=== PATIENT | female | born 1990 | race Caucasian/White ===

== ENCOUNTER 2020-07-22 20:35 | Emergency (ER) | payer SELFPAY ==
[2020-07-22 20:46] VITALS: BP 131/80; PULSE 91; RESP 16; TEMP 36.8; O2SAT 99; BMI 20.7
--- NOTE | 2020-07-22 21:37 | XR_ITS ---
WS: [id number] Portable AP upright chest, 07/22/2020 Clinical Data: Dyspnea/chest pain Comparison: PA and lateral chest, 05/27/2014. Findings: No nodules, masses or effusions are seen. The heart is normal. The pulmonary vascularity is not increased. No pneumonia or pneumothorax is seen. XR/XR chest 1V portable [id number] Impression: Negative chest.
--- NOTE | 2020-07-22 21:37 | ECG_ITS ---
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 Measurements Intervals [place] Rate: 91 P: 54 NE: 104 QRS: 70 QRSD: 88 T: -5 QT: 346 QTc: 426 Interpretive Statements SINUS RHYTHM WITH SHORT NE INTERVAL NONSPECIFIC T-WAVE ABNORMALITY No previous ECG available for comparison Electronically Signed On 07-23-2020 10:15:23 PASTING MACHINE OPERATOR by Jv Oliveros M.D. [id number]
--- NOTE | 2020-07-22 22:32 | W.ED.GENADLT ---
HPI - General Adult General: Chief complaint: General Medical Stated complaint: SOB/chest pain Time Seen by Provider: 07/22/20 22:20 History of Present Illness: HPI narrative: Patient is a 30-year-old female comes to the ED with chest pain. Patient says that it started approximately 2 days ago and started when she was sleeping.. She describes it as a sharp pain in the middle of her chest that also feels like some things stuck letter. She says that symptoms are worse when she is eating or when she lays down. She says that she currently has been drinking about 4 energy drinks a day for the past few months. Denies any previous cardiac history. Patient says she did have a fever earlier today and took some Tylenol. She has not noticed any fever since earlier today. Patient says she is taken Tums and has not gotten any relief. Denies abdominal pain, nausea/vomiting, bladder or bowel symptoms. Patient also states she is a tobacco smoker. Associated symptoms: Reports chest pain; Deny dyspnea, headache(s), nausea, rash, palpitations or vomiting Review of Systems Const: Denies: fever(s), chills or fatigue Eyes: Denies: change in vision or eye discomfort ENMT: Denies: throat pain, odynophagia, nasal discharge or nasal congestion Card: Reports: chest pain; Denies: palpitations, edema, swelling of feet/ankles, dyspnea on exertion or orthopnea Resp: Denies: dyspnea, productive cough or non-productive cough GI: Denies: abdominal pain, nausea, vomiting, diarrhea, constipation or hematochezia : Denies: flank pain, dysuria or hematuria Musc: Denies: neck pain, back pain or extremity swelling Skin/Breast: Denies: rash or new lesions Neuro: Denies: headache(s), numbness in extremities or weakness in extremities Physical Exam Const: COMMON NORMALS: no acute distress, patient oriented x3 and alert GENERAL APPEARANCE: cooperative and comfortable HENMT: COMMON NORMALS: normocephalic HEAD & SCALP: normocephalic MOUTH: Normal oral and palatal mucosa present THROAT: posterior oropharynx normal and uvula midline Eye: COMMON NORMALS: Equal, round and reactive pupils present PUPIL: Yes Equal, round and reactive pupils present Neck/C-Spine: COMMON NORMALS: supple GENERAL: Yes normal visual inspection Resp: COMMON NORMALS: normal respiratory effort, No retractions, No use of accessory muscles and clear to auscultation bilaterally EFFORT & INSPECTION: Yes able to speak in complete sentences, No tachypneic, No respiratory distress and No labored AUSCULTATION: clear to auscultation bilaterally Cardio: COMMON NORMALS: regular rate, regular rhythm, S1 normal heart sound present, S2 normal heart sound present, No gallops present (Cardio), No clicks present (Cardio), No murmurs present (Cardio) and Peripheral pulses 2+ throughout RATE: regular rate RHYTHM: regular rhythm HEART SOUNDS: S1 normal heart sound present and S2 normal heart sound present PERIPHERAL PULSES: Peripheral pulses 2+ throughout GI: COMMON NORMALS: Normal to inspection, nondistended, normoactive bowel sounds present, Soft to palpation and no masses PALPATION: Yes Soft to palpation and Yes Tenderness to palpation present (GI) Details: other (Very mild tenderness to the epigastric region. No other abdominal tenderness present.) : COMMON NORMALS: Yes no CVA tenderness BLADDER/KIDNEY EXAM: Yes no CVA tenderness Back/Pelvis: COMMON NORMALS: no CVA tenderness Extremity: COMMON NORMALS: normal to inspection and no pedal edema Neuro: COMMON NORMALS: patient oriented x3 and moves all extremities SENSORIUM/ORIENTATION: Yes alert Skin: GENERAL SKIN EXAM: dry skin Course Reevaluation(s): Reevaluation #1: GI cocktail provided minimal relief. Vital Signs: Vital signs: Vital Signs Temperature 98.2 F 07/22/20 20:46 Pulse Rate 67 07/23/20 00:41 Respiratory Rate 16 07/23/20 00:41 Blood Pressure 132/78 07/23/20 00:41 Pulse Oximetry 99 07/23/20 00:41 MDM - General Adult MDM Narrative: Medical decision making narrative: Patient is a 30-year-old female comes to the ED with chest pain. Chest pain sharp lower part of the chest and she says it gets worse. Patient says that she has been he drinks a day for the past few months. Denies any fever, vomiting, diarrhea, constipation, blood in stool, dysuria or hematuria. Chest x-ray showed no acute findings. EKG showed normal sinus rhythm with no ST segment elevation or depression seen. Troponin negative. White blood cells 12, hemoglobin 10.4 and rest of labs were unremarkable. Patient given GI cocktail and provided minimal relief. Patient was diagnosed with acid reflux and told pt to decreased intake of caffeine and tobacco smoke to help with symptoms. She was discharged with a prescription for Zofran and pantoprazole. Follow-up with PCP in 5 to 7 days for reevaluation. Return to ED precautions given. Patient understood and agree with plan. Lab Data: Attestation: I reviewed the patient's lab results. Labs: Lab Results 07/22/20 07/22/20 07/22/20 Range/Units 23:04 23:04 23:04 WBC 12.0 H (4.0-10.0) 10^3/ uL RBC 4.95 (4.1-5.3) 10^6/u L Hgb 10.4 L (11.5-15.3) g/dL Hct 34.4 L (37.0-47.0) % MCV 69.5 L (81-99) fL MCH 21.0 L (28.0-34.0) pg MCHC 30.2 (30.0-36.0) g/dL RDW 17.3 H (12.1-15.1) % Plt Count 397 (130-400) 10^3/c mm MPV 11.0 H (7.4-10.4) fL Neut % (Auto) 70.0 % Lymph % (Auto) 17.5 % [place] % (Auto) 8.8 % Eos % (Auto) 2.5 % Baso % (Auto) 0.9 % Neut # (Auto) 8.39 H (1.8-7.7) 10^3/u L Lymph # (Auto) 2.1 (0.8-4.8) 10^3/u L [place] # (Auto) 1.1 H (0.2-0.9) 10^3/u L Eos # (Auto) 0.3 (0.0-0.8) 10^3/u L Baso # (Auto) 0.1 (0.0-0.1) 10^3/u L Nucleated RBC % (a uto) 0 % Nucleated RBCs # 0.0 /100WBC PT 13.20 (12.1-14.9) SECO NDS INR 0.97 (0.8-1.2) Sodium 140 (136-145) mmol/L Potassium 3.9 (3.5-5.1) mmol/L Chloride 104 (98-107) mmol/L Carbon Dioxide 24 (22-29) mmol/L Anion Gap 15.9 (5-19) BUN 12 (6-20) mg/dL Creatinine 0.7 (0.5-0.9) mg/dL GFR Calculation 98.9 (90-130) mL/min Glucose 79 (65-115) mg/dL Calculated Osmolal ity 289 (285-295) mOsm/k g Calcium 9.3 (8.5-10.5) mg/dL Magnesium 2.3 (1.7-2.3) mg/dL Total Bilirubin 0.2 (0.15-1.2) mg/dL AST 13 (0-32) U/L ALT 11 (0-33) U/L Alkaline Phosphata se 64 (35-105) IU/L Troponin T Baselin e (0-10) ng/L Total Protein 6.7 (6.6-8.7) g/dL Albumin 4.6 (3.5-5.2) g/dL Globulin 2.1 (1.3-4.6) g/dL Lipase 23 (13-60) U/L HCG, Qual (Negative) Urine Color (Yellow) Urine Appearance (CLEAR) Urine pH (5-7) Ur Specific Gravit y (1.005-1.030) Urine Protein (Negative) Urine Glucose (UA) (Normal) Urine Ketones (Negative) Urine Blood (Negative) Urine Nitrate (Negative) Urine Bilirubin (Negative) Urine Urobilinogen (Negative) mg/dL Ur Leukocyte Fiona ase (Negative) Urine RBC (0-2) /hpf Urine WBC (0-5) /hpf Ur Squamous Epith Cells (0-5) /hpf Amorphous Sediment Urine Bacteria (NONE) /hpf Urine Mucus /hpf 07/22/20 07/22/20 07/22/20 Range/Units 23:04 23:04 23:43 WBC (4.0-10.0) 10^3/ uL RBC (4.1-5.3) 10^6/u L Hgb (11.5-15.3) g/dL Hct (37.0-47.0) % MCV (81-99) fL MCH (28.0-34.0) pg MCHC (30.0-36.0) g/dL RDW (12.1-15.1) % Plt Count (130-400) 10^3/c mm MPV (7.4-10.4) fL Neut % (Auto) % Lymph % (Auto) % [place] % (Auto) % Eos % (Auto) % Baso % (Auto) % Neut # (Auto) (1.8-7.7) 10^3/u L Lymph # (Auto) (0.8-4.8) 10^3/u L [place] # (Auto) (0.2-0.9) 10^3/u L Eos # (Auto) (0.0-0.8) 10^3/u L Baso # (Auto) (0.0-0.1) 10^3/u L Nucleated RBC % (a uto) % Nucleated RBCs # /100WBC PT (12.1-14.9) SECO NDS INR (0.8-1.2) Sodium (136-145) mmol/L Potassium (3.5-5.1) mmol/L Chloride (98-107) mmol/L Carbon Dioxide (22-29) mmol/L Anion Gap (5-19) BUN (6-20) mg/dL Creatinine (0.5-0.9) mg/dL GFR Calculation (90-130) mL/min Glucose (65-115) mg/dL Calculated Osmolal ity (285-295) mOsm/k g Calcium (8.5-10.5) mg/dL Magnesium (1.7-2.3) mg/dL Total Bilirubin (0.15-1.2) mg/dL AST (0-32) U/L ALT (0-33) U/L Alkaline Phosphata se (35-105) IU/L Troponin T Baselin e 6 (0-10) ng/L Total Protein (6.6-8.7) g/dL Albumin (3.5-5.2) g/dL Globulin (1.3-4.6) g/dL Lipase (13-60) U/L HCG, Qual Negative (Negative) Urine Color Yellow (Yellow) Urine Appearance Clear (CLEAR) Urine pH 5.0 (5-7) Ur Specific Gravit y 1.025 (1.005-1.030) Urine Protein Neg (Negative) Urine Glucose (UA) Norm (Normal) Urine Ketones 1+ H (Negative) Urine Blood Neg (Negative) Urine Nitrate Negative (Negative) Urine Bilirubin Neg (Negative) Urine Urobilinogen Norm (Negative) mg/dL Ur Leukocyte Fiona ase Negative (Negative) Urine RBC 0-4 H (0-2) /hpf Urine WBC 0-4 H (0-5) /hpf Ur Squamous Epith Cells Rare (0-5) /hpf Amorphous Sediment Not Reportable Urine Bacteria Trace (NONE) /hpf Urine Mucus Trace /hpf Imaging Data^: CXR: Attestation: I personally reviewed and interpreted this imaging study as follows: My impression: Chest x-ray showed no acute findings. EKG Data^: EKG 1: Attestation: I personally reviewed and interpreted this EKG as follows: EKG interpretation date: 07/22/20 Interpretation: Normal sinus rhythm, 67 bpm, no ST segment elevation or depression seen. Discharge Plan Discharge Patient Disposition: Home Clinical Impression: Acid reflux disease Qualifiers: Esophagitis presence: esophagitis presence not specified Qualified Code(s): K21.9 - Gastro-esophageal reflux disease without esophagitis Condition: Stable Prescriptions: New pantoprazole 40 mg tablet,delayed release (DR/EC) 40 mg PO DAILY 28 Days Qty: 30 RF: 0 Zofran 4 mg tablet 4 mg PO Q8H PRN (Reason: nausea and vomiting) Qty: 20 RF: 0 Discharge Orders: Discharge Order (Routine); Ordered 07/23/20 Ordered By: Benson Aranda Referrals: Perla Meade MD [Primary Care Provider] - Discharge Diet: Advance as tolerated Discharge Activity: Resume usual activity Patient Instructions: Gastroesophageal Reflux Disease (ED) Activity Restrictions/Additional Instructions: Follow-up with medical provider as directed in 5-7 days. Take medications as prescribed. Cut back on caffeine intake to help with acid reflux. Return to the ER or your medical provider if condition worsens. Please read and understand discharge instructions. If any questions, please ask. Coding Level of Care Code ED Dock Loader for Chg Fwd Exam Comprehensive
[2020-07-22 22:40] VITALS: BP 123/67; PULSE 72; RESP 15; O2SAT 100
[2020-07-22] MEDS: lidocaine 2% viscous 15 ML, aluminum-mag hydrox-simethicon 30 ML, sucralfate oral liq 1 GM PO (22:54)
[2020-07-22] MEDS: sodium chloride 0.9% 1,000 ML 999 ML IV (23:05)
[2020-07-22 23:06] VITALS: BP 114/64; PULSE 73; RESP 15; O2SAT 100
[2020-07-22 23:28] LABS: HCG, Serum Qual Negative (Negative)
[2020-07-22 23:30] LABS: Basophils # 0.1 10^3/uL (0.0-0.1); Basophils % 0.9 %; Eosinophils # 0.3 10^3/uL (0.0-0.8); Eosinophils % 2.5 %; Hematocrit 34.4 % (37.0-47.0); Hemoglobin 10.4 g/dL (11.5-15.3); Lymphocytes # 2.1 10^3/uL (0.8-4.8); Lymphocytes % 17.5 %; Mean Corpuscular HGB Conc 30.2 g/dL (30.0-36.0); Mean Corpuscular Volume 69.5 fL (81-99); Monocytes # 1.1 10^3/uL (0.2-0.9); Monocytes % 8.8 %; Neutrophils # 8.39 10^3/uL (1.8-7.7); Nucleated Red Blood Cells % 0 %; Platelet Count 397 10^3/cmm (130-400); Red Blood Count 4.95 10^6/uL (4.1-5.3); Red Cell Distribution Width 17.3 % (12.1-15.1)
[2020-07-22 23:32] LABS: INR 0.97 (0.8-1.2)
--- NOTE | 2020-07-22 23:37 | ECG_ITS ---
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 Measurements Intervals [place] Rate: 67 P: 40 DE: 125 QRS: 64 QRSD: 89 T: 36 QT: 374 QTc: 395 Interpretive Statements SINUS RHYTHM NON SPECIFIC T WAVE ABNORMALITY COMPARED TO PRIOR EKG FROM 07/22/2020, NO SIGNIFICANT CHANGES ARE NOTED Electronically Signed On 07-23-2020 10:20:[address] by Jv Oliveros M.D. [id number]
[2020-07-22 23:47] VITALS: BP 114/74; PULSE 81; RESP 15; O2SAT 100
[2020-07-23 00:08] LABS: Bilirubin Urine Neg (Negative); Blood Urine Neg (Negative); Glucose Urine UA Norm (Normal); Ketones Urine 1+ (Negative); Nitrate Urine Negative (Negative); Protein Urine Neg (Negative); Specific Gravity, Urine 1.025 (1.005-1.030); Urine Appearance Clear (CLEAR); Urine Color Yellow (Yellow); Urobilinogen Urine Norm (Negative)
[2020-07-23 00:09] LABS: Add Urine Culture? No; Bacteria Urine TRACE /hpf; Leukocyte Esterase Urine Negative (Negative); Mucus Urine TRACE /hpf; RBC Urine 0-4 /hpf (0-2); Squamous Epithelial Cell Urine RARE /hpf (0-5); WBC Urine 0-4 /hpf (0-5)
[2020-07-23 00:10] LABS: Troponin(5th) Baseline 6 ng/L (0-10)
[2020-07-23 00:11] LABS: Alanine Aminotransferase 11 U/L (0-33); Albumin Level 4.6 g/dL (3.5-5.2); Alkaline Phosphatase 64 IU/L (35-105); Anion Gap 15.9 (5-19); Aspartate Amino Transferase 13 U/L (0-32); Blood Urea Nitrogen 12 mg/dL (6-20); Calcium 9.3 mg/dL (8.5-10.5); Carbon Dioxide 24 mmol/L (22-29); Chloride 104 mmol/L (98-107); Globulin 2.1 g/dL (1.3-4.6); Glomerular Filtration Rate 98.9 mL/min (90-130); Glucose 79 mg/dL (65-115); Lipase 23 U/L (13-60); Magnesium 2.3 mg/dL (1.7-2.3); Osmolality Calculated 289 mOsm/kg (285-295); Potassium 3.9 mmol/L (3.5-5.1); Sodium 140 mmol/L (136-145); Total Bilirubin 0.2 mg/dL (0.15-1.2); Total Protein 6.7 g/dL (6.6-8.7)
[2020-07-23 00:41] VITALS: BP 132/78; PULSE 67; RESP 16; O2SAT 99
== END 2020-07-23 00:43 | disposition home or self-care (01) ==
PROVIDERS: Emergency Medicine; Emergency Provider Physician Assistant; PCP Family Medicine
DX: K21.9 Gastro-esophageal reflux disease without esophagitis (principal); F17.200 Nicotine dependence, unspecified, uncomplicated
CPT/HCPCS: 12345; 71045; 80053; 81001; 83690; 83735; 84484; 84703; 85025; 85610; 93005; 96360; 99283; J7030

== ENCOUNTER → 2023-05-12 13:30 | Outpatient (BNVA) | payer OTHER, SELFPAY | PROVIDERS: PCP Family Medicine; Visit Provider Nurse Practitioner Women's Health | DX: Z12.4 Encounter for screening for malignant neoplasm of cervix (principal) | CPT/HCPCS: 87624 ==

== ENCOUNTER → 2023-05-25 15:20 | Outpatient (BNVA) | payer OTHER, SELFPAY | PROVIDERS: PCP Family Medicine; Visit Provider Nurse Practitioner Women's Health | DX: N94.6 Dysmenorrhea, unspecified (principal); N83.01 Follicular cyst of right ovary | CPT/HCPCS: 76830 ==

== ENCOUNTER → 2023-06-27 13:31 | Outpatient (BNVA) | payer OTHER, SELFPAY | PROVIDERS: PCP Family Medicine; Visit Provider Nurse Practitioner Women's Health | DX: N83.01 Follicular cyst of right ovary (principal); N83.02 Follicular cyst of left ovary | CPT/HCPCS: 76830 ==

== ENCOUNTER → 2023-06-30 | Outpatient (BNVA) | payer OTHER, SELFPAY | PROVIDERS: PCP Family Medicine; Visit Provider Nurse Practitioner Women's Health | DX: Z12.4 Encounter for screening for malignant neoplasm of cervix (principal); N83.8 Other noninflammatory disorders of ovary, fallopian tube and broad ligament; N92.6 Irregular menstruation, unspecified; R10.2 Pelvic and perineal pain | CPT/HCPCS: 83001; 84146; 84443; 84702; 85025 ==

== ENCOUNTER → 2023-08-09 10:18 | Outpatient (BNVA) | payer OTHER, SELFPAY | PROVIDERS: PCP Family Medicine; Visit Provider Registered Nurse Neonatal Intensive Care | DX: J02.9 Acute pharyngitis, unspecified (principal) | CPT/HCPCS: 87880 ==

== ENCOUNTER 2023-09-27 10:15 | Inpatient (IN) | payer OTHER, SELFPAY ==
[2023-09-23 10:43] LABS: Basophils # 0.1 10^3/uL (0.0-0.1); Basophils % 1.8 %; Eosinophils # 0.3 10^3/uL (0.0-0.8); Eosinophils % 4.2 %; Hematocrit 32.6 % (36-47); Lymphocytes # 1.6 10^3/uL (0.8-4.8); Lymphocytes % 25.9 %; Mean Corpuscular Hemoglobin 22.4 pg (27-33); Mean Corpuscular Volume 72.4 fl (85-98); Mean Platelet Volume 10.3 fL (7.4-10.4); Monocytes # 0.6 10^3/uL (0.2-0.9); Neutrophils # 3.61 10^3/uL (1.8-7.7); Neutrophils % 58.9 %; Nucleated Red Blood Cells % 0 %; Platelet Count 445 10^3/cmm (157-399); Red Cell Distribution Width 16.7 % (12.1-15.1); White Blood Count 6.13 10^3/uL (3.29-11.43)
[2023-09-23 11:05] LABS: Anion Gap 14.8 (5-19); Blood Urea Nitrogen 15 mg/dL (6-20); Calcium 9.5 mg/dL (8.5-10.5); Carbon Dioxide 24 mmol/L (22-29); Chloride 104 mmol/L (98-107); Glucose 92 mg/dL (65-115); Osmolality Calculated 286 mOsm/kg (285-295); Potassium 4.8 mmol/L (3.5-5.1); Sodium 138 mmol/L (136-145)
--- NOTE | 2023-09-23 13:55 | P.ANESASSM_ITS ---
Pre-Anesthetic Assessment Height/Weight: Height 1.55 m Operation Date: 09/27/23 11:15 Proposed Procedures p Total abdominal hysterectomy, left salpingo-oophorectomy 74611, N92.6,R10.2(Not Applicable) - Reji Singh MD s Salpingo Oophorectomy (Open)(Not Applicable) - Reji Singh MD Social No alcohol and No tobacco Airway Submandibular: within normal limits Cervical ROM: within normal limits Mallampati: Class I History/ROS No significant history except as noted Anesthetic Plan ASA status: 1 Anesthesia: General Medications/Allergies Home Medications Medication Instructions Recorded Confirmed Last Taken Type methylphenidate HCl 18 mg 18 mg PO DAILY 05/12/23 09/23/23 09/23/23 History tablet,extended release 24 hr (Concerta) Allergies Allergy/AdvReac Type Severity Reaction Status Date / Time cefaclor [From Ceclor] Allergy ALGY-Rash Verified 09/23/23 10:03 [facility] Anesthesia Family History Mother Ovarian cancer Family/Other Breast cancer Paternal aunt Father Diabetes Denies family history of Cervical cancer Colon cancer Hypertension Uterine cancer Thyroid disease Stroke Data Anesthesia 09/23/23 10:20 09/23/23 10:20 Short CBC 09/23/23 Range/Units 10:20 WBC 6.13 (3.29-11.43) 10^3/uL Hgb 10.10 L (11.27-16.99) g/dL Hct 32.6 L (36-47) % MCV 72.4 L (85-98) fl Plt Count 445 H (157-399) 10^3/cmm Neut % (Auto) 58.9 % Neut # (Auto) 3.61 (1.8-7.7) 10^3/uL BMP 09/23/23 10:20 Sodium 138 Potassium 4.8 Chloride 104 Carbon Dioxide 24 BUN 15 Creatinine 0.7 Glucose 92 Calcium 9.5 Cardiac Studies: 2 No Data to Display
[2023-09-27] VITALS (22 sets, daily range): BP systolic 104–145; BP diastolic 56–82; PULSE 63–109; RESP 14–18; TEMP 36.2–37.1; O2SAT 94–100; BMI 21.7
[2023-09-27] MEDS: scopolamine 1.5 Patch 1 PATCH TRANSDERMA (06:32)
[2023-09-27] MEDS: sodium chloride 0.9% 1,000 ML 30 ML IV (06:33)
[2023-09-27] MEDS: sodium chloride 0.9% 500 ML IV (06:43)
[2023-09-27] MEDS: vancomycin 1,000 MG in sodium chloride 0.9% 250 ML 250 MG IV (06:43)
[2023-09-27 06:46] LABS: Glucose Urine UA Norm (Normal); Protein Urine Neg (Negative); Urine Appearance SL Hazy (CLEAR); Urine Color Yellow (Yellow); pH Urine 5 (5-7)
[2023-09-27 06:47] LABS: Add Urine Culture? No; Add Urine Microscopic? YES; Bacteria Urine 2+ /hpf; Bilirubin Urine Neg (Negative); Blood Urine 2+ (Negative); Ketones Urine 1+ (Negative); Leukocyte Esterase Urine Negative (Negative); Mucus Urine 2+ /hpf; Nitrate Urine Negative (Negative); RBC Urine 0-4 /hpf (0-2); Squamous Epithelial Cell Urine 25-40 /hpf (0-5); Urobilinogen Urine Norm (Negative); WBC Urine 15-25 /hpf (0-5)
[2023-09-27 06:50] LABS: Basophils # 0.2 10^3/uL (0.0-0.1); Eosinophils # 0.3 10^3/uL (0.0-0.8); Eosinophils % 3.6 %; Hematocrit 32.7 % (36-47); Lymphocytes # 2.6 10^3/uL (0.8-4.8); Lymphocytes % 33.7 %; Mean Corpuscular HGB Conc 31.8 g/dL (30-55); Mean Corpuscular Hemoglobin 22.8 pg (27-33); Mean Corpuscular Volume 71.6 fl (85-98); Mean Platelet Volume 10.1 fL (7.4-10.4); Monocytes # 0.6 10^3/uL (0.2-0.9); Monocytes % 8.1 %; Neutrophils # 3.97 10^3/uL (1.8-7.7); Neutrophils % 52.5 %; Nucleated Red Blood Cells % 0 %; Platelet Count 498 10^3/cmm (157-399); Red Blood Count 4.57 10^6/uL (3.85-5.65); Red Cell Distribution Width 16.4 % (12.1-15.1); White Blood Count 7.56 10^3/uL (3.29-11.43)
[2023-09-27 06:53] LABS: OR HCG Qualitative Urine Negative (Negative)
--- NOTE | 2023-09-27 06:57 | P.ANESUD_ITS ---
Pre-Anesthetic Update Pre-Anesthetic Assessment: Date of Surgery/Procedure: 09/27/23 Preop Marlys gnosis: Abnormal uterine bleeding, chronic pelvic pain Proposed Procedure: Operation Date: 09/27/23 07:00 Proposed Procedures p Total abdominal hysterectomy, left salpingo-oophorectomy 19706, N92.6,R10.2(Not Applicable) - Reji Singh MD s Salpingo Oophorectomy (Open)(Not Applicable) - Reji Singh MD Any changes to Pre-Anesthetic Assessment?: No Last Intake: Intake Last Liquid Date 09/26/23 Last Liquid Time 23:45 Last Solid Date 09/26/23 Last Solid Time 23:45 Labs Last 48hrs: Short CBC 09/27/23 Range/Units 06:40 WBC 7.56 (3.29-11.43) 10^ 3/uL Hgb 10.40 L (11.27-16.99) g/ dL Hct 32.7 L (36-47) % MCV 71.6 L (85-98) fl Plt Count 498 H (157-399) 10^3/c mm Neut % (Auto) 52.5 % Neut # (Auto) 3.97 (1.8-7.7) 10^3/u L Urine 09/27/23 Range/Units 06:20 Urine Color Yellow (Yellow) Urine Appearance Sl hazy A (CLEAR) Urine pH 5 (5-7) Ur Specific Gravit y 1.030 (1.005-1.030) Urine Protein Neg (Negative) Urine Glucose (UA) Norm (Normal) Urine Ketones 1+ H (Negative) Urine Nitrate Negative (Negative) Urine Bilirubin Neg (Negative) Ur Leukocyte Fiona ase Negative (Negative) Urine RBC 0-4 H (0-2) /hpf Urine WBC 15-25 H (0-5) /hpf Vitals: Temperature 97.4 F L 09/27/23 06:25 Temperature Source Temporal Artery S can 09/27/23 06:25 Pulse Rate 78 09/27/23 06:25 Pulse Rhythm Regular 09/27/23 06:26 Pulse Strength 3+ Normal 09/27/23 06:26 Respiratory Rate 18 09/27/23 06:25 Blood Pressure 145/82 09/27/23 06:25 Blood Pressure Danae n 103 09/27/23 06:25 Pulse Oximetry 100 09/27/23 06:25 Oxygen Delivery Me thod Room Air 09/27/23 06:26 Exam: Pre-Anes Outpt Exam: alert, oriented x 3, clear to auscultation bilaterally and regular rate & rhythm Cardiac Studies: No Data to Display
[2023-09-27 07:21] LABS: Alanine Aminotransferase 16 U/L (0-33); Albumin Level 4.6 g/dL (3.5-5.2); Alkaline Phosphatase 61 U/L (35-105); Anion Gap 13.9 (5-19); Aspartate Amino Transferase 17 U/L (0-32); Blood Urea Nitrogen 13 mg/dL (6-20); Calcium 9.9 mg/dL (8.5-10.5); Carbon Dioxide 25 mmol/L (22-29); Chloride 102 mmol/L (98-107); Globulin 2.6 g/dL (1.3-4.6); Glomerular Filtration Rate 115.9 mL/min (90-130); Glucose 84 mg/dL (65-115); Osmolality Calculated 283 mOsm/kg (285-295); Potassium 3.9 mmol/L (3.5-5.1); Sodium 137 mmol/L (136-145); Total Bilirubin 0.2 mg/dL (0.15-1.2); Total Protein 7.2 g/dL (6.6-8.7)
--- NOTE | 2023-09-27 07:21 | W.PM.OPSUD ---
Surgery/Procedure H&P Update DATE OF PROCEDURE: September 27, 2023 DATE H&P PERFORMED: 09/19/23 H&P UPDATE INFORMATION: I have reviewed H&P completed within last 30 days, I have examined patient prior to procedure and No changes to prior documentation PREOP DIAGNOSIS: Abnormal uterine bleeding, chronic pelvic pain PLANNED PROCEDURE: Operation Date: 09/27/23 07:00 Proposed Procedures p Total abdominal hysterectomy, left salpingo-oophorectomy 32331, N92.6,R10.2(Not Applicable) - Reji Singh MD s Salpingo Oophorectomy (Open)(Not Applicable) - Rjei Singh MD
[2023-09-27] MEDS: levofloxacin-dextrose 5 % 500 MG/100 ML PREMIX 100 MG IV (07:36)
[2023-09-27] MEDS: BUPivacaine 0.25% INJ 30 mL INJECTION (09:13)
[2023-09-27] MEDS: BUPivacaine liposome 13.3 mg/mL SDV 10 mL 266 MG INFILTRATI (09:14)
[2023-09-27] MEDS: lidocaine-epi 2% 20 mL INJ INJECTION (09:14)
--- NOTE | 2023-09-27 10:28 | PM.OP ---
Operative Report Date of procedure: September 27, 2023 Pre-op diagnosis: Pelvic pain Abnormal uterine bleeding Post-op diagnosis: same Post-op findings: Multiples adhesions displacing the uterus to the left side Procedure done: Total abdominal hysterectomy Left -oophorectomy Lysis of adhesions. Surgeon: Reji Singh MD Estimated blood loss (mL): 100 IV fluids (mL): 1,600 Urine output (mL): 400 Complications: Multiple dense adhesions Procedure: The patient was taken to the operating room, and after adequate level of general anesthesia was achieved, the patient was placed in the Trendelenburg position, prepped and draped in the usual sterile fashion. Subsequently, a Pfannenstiel incision was made and the incision was taken down to the fascia. The fascia was opened up sharply. The fascia was extended to the length of the incision using the Veronica scissors. At this time, the rectus muscles were dissected from the fascia superiorly and inferiorly to the symphysis pubis. The midline rectus muscles were opened sharply and extended superiorly and inferiorly. The peritoneum was visualized, grasped, opened sharply, and extended superiorly and inferiorly towards the bladder. Multiple adhesions were encountered displacing the uterus to the left side. The abdominal contents were packed superiorly away from the operative site using the lap packs. At this time, the pelvic organs were noted. The Brad self-retaining retractor was placed. Bowel was packed away from the operative site. Adhesions were carefully taken down to free the fundus and anterior wall of the uterus from the anterior abdominal wall then it was grasped with a triple-tooth tenaculum and retracted out of the pelvic cavity into the abdominal site. At this point, Francia clamps were placed in both right and left adnexal regions. The bladder was carefully dissected off the uterus with scissors. Subsequently, using the LigaSure cautery unit, the round ligaments were grasped, cauterized, and dissected. Adhesion were carefully taken down bilaterally with blunt and sharp dissection. The bladder flap was then formed and the bladder flap was pushed away down anteriorly over the lower uterine segment, pushed away from the operative site on both the right and left sides. Subsequently, the posterior leaf of the broad ligament was opened sharply and the LigaSure instrument was then placed below the level of the ovary in both the right and left side, care being taken not to damage bowel or uterus. Further dissection of the broad ligament was carried down posteriorly towards the uterine vessels. The bladder was pushed inferiorly down towards the vagina. Subsequently, the uterine vessels were then grasped again with the LigaSure machine, cauterized, and dissected. The cardinal ligaments were further grasped, dissected, and suture ligated, again with the LigaSure machine. At that point, the LigaSure machine instrument was stopped and straight Zeppelin clamps were used on the cardinal ligaments down towards the uterosacral ligaments. The cardinal ligaments were grasped, dissected with a scalpel and then ligated with transfixion sutures with #1 Vicryl suture down to the uterosacral ligaments. The uterosacral ligaments were grasped, dissected, and suture ligated again with #1 Vicryl suture and transfixion sutures. At that time, the bladder had been pushed over the vagina and at this time right-angle Zeppelin clamps were placed on the vagina at the level of the cervix, and using the Panfilo scissors, the cervix was dissected away from the vagina. At this time, the vaginal cuff was then closed using interrupted sutures of #1 Vicryl suture from the midline to each lateral corner. After the good hemostasis had been achieved in the vaginal cuff, both the right and left adnexa was visualized and no more bleeding was noted. The left ovary was grasped a Bobcock forcep clamp at the insertion of infudibulo ilgament, sealed and cut with the Ligasure device and the left ovary was removed. Good hemostasis was noted. The cuff was intact with no bleeding noted. The bladder was visualized and no bleeding was noted. The Brad self-retaining retractor was removed. The lap packs were removed, and at this time, general closure of the abdomen was carried out. The peritoneum was closed with a 2-0 Vicryl suture. The fascia was closed using a #1 Vicryl suture from each corner to the midline. Subcutaneous tissue was cauterized. No bleeding was noted. The subcutaneous tissue was then reapproximated using plain sutures and interrupted sutures, and the skin was closed using Insorb absorbable subcuticular [place]. Exparel was infiltrated at the incision site for pain management. The patient tolerated the procedure well and was transferred to the recovery room in excellent condition. The patient returned to the floor for recovery.
[2023-09-27] MEDS: fentaNYL 50 mcg/mL INJ 2mL IVP (10:31)
--- NOTE | 2023-09-27 10:55 | ANE.PACU2 ---
Inpatient post-anesthesia follow up: Airway intact: Yes Vital signs: Temperature 98.7 F Pulse Rate 109 Respiratory Rate 16 Blood Pressure 114/72 Pulse Oximetry 99 Oxygen Delivery Me thod Room Air Oxygen Flow Rate 6 Fraction of Inspir ed Oxygen Hydration adequate: Yes Nausea and vomiting: No Pain level: 1 Mental status: Baseline
[2023-09-27] MEDS: dextrose 5%-lactated ringers 1,000 ML 125 ML IV (11:22)
[2023-09-27] MEDS: ketorolac 30 mg/mL INJ IVP ×3 (11:22→23:12)
[2023-09-27] MEDS: HYDROcodone-acetaminophen 5-325 mg Tablet PO ×2 (11:23→17:33)
[2023-09-27] MEDS: nicotine 14 mg Patch 1 PATCH TRANSDERMA (11:57)
[2023-09-27] MEDS: ondansetron 2 mg/ML SDV 2 mL 4 MG IVP (15:27)
[2023-09-27] MEDS: docusate sodium 100 mg Capsule PO (17:33)
[2023-09-28] MEDS: HYDROcodone-acetaminophen 5-325 mg Tablet PO ×4 (03:48→21:44)
[2023-09-28 05:07] LABS: Hematocrit 25.8 % (36-47); Mean Corpuscular Hemoglobin 22.8 pg (27-33); Mean Corpuscular Volume 73.5 fl (85-98); Mean Platelet Volume 10.1 fL (7.4-10.4); Platelet Count 383 10^3/cmm (157-399); Red Blood Count 3.51 10^6/uL (3.85-5.65); Red Cell Distribution Width 16.6 % (12.1-15.1); White Blood Count 10.39 10^3/uL (3.29-11.43)
[2023-09-28] MEDS: ketorolac 30 mg/mL INJ IVP (05:40)
[2023-09-28 05:43] VITALS: BP 99/58; PULSE 58; RESP 16; TEMP 37.4; O2SAT 97
[2023-09-28] MEDS: nicotine 14 mg Patch 1 PATCH TRANSDERMA (10:11)
[2023-09-28] MEDS: docusate sodium 100 mg Capsule PO ×2 (10:11→18:35)
[2023-09-28] MEDS: ibuprofen 800 mg tablet PO ×2 (10:11→18:35)
[2023-09-28 11:00] VITALS: BP 110/72; RESP 17; TEMP 37
--- NOTE | 2023-09-28 12:18 | P.PN_ITS ---
Subjective 2 Subjective: Mrs. Poe 33-year-old female is status post total abdominal hysterectomy and left salpingo-oophorectomy postoperative day 1. Refer incision tenderness. Vitals/I&O/Wt Last Vital Signs Temp 99.4 F 09/28/23 05:43 Pulse 58 L 09/28/23 05:43 Resp 16 09/28/23 05:43 BP 99/58 09/28/23 05:43 Pulse Ox 97 09/28/23 05:43 O2 Del Method Room Air 09/28/23 05:43 O2 Flow Rate 6 09/27/23 10:14 09/27/23 09/28/23 09/28/23 22:59 06:59 14:59 Intake Total 1800 / 3050 200 / 3250 240 / 240 Output Total 1700 / 2700 1600 / 4300 Balance 100 / 350 -1400 / -1050 240 / 240 Weight last 48 hrs Weight 52.163 kg Weight 52.163 kg Physical Exam 2 Narrative: GA: Alert and oriented ?3. HEENT: WNL. Heart: Regular rate and rhythm. Lungs: Clear to auscultation bilaterally. Abdomen: Bowel sounds present, minimal tenderness, incision clean and dry, no redness, pain or edema. BRACELET FORMER: No bleeding. Extremities: No edema, no cyanosis, no calves pain. Urinary Catheter Management: [place]: Cath Placed During This Visit: yes, but has since been removed by the nurse Reason for Continuing Indwelling Catheter: Decision to DC Catheter Urinary Catheter Date of Insertion: 09/27/23 Urinary Catheter Time of Insertion: 07:50 Date Urinary Catheter Removed: 09/27/23 Time Urinary Catheter Discontinued: 17:44 Data 09/28/23 04:55 09/27/23 06:40 A&P Assessment and plan (1) Status post total abdominal hysterectomy: Mrs. Piper status post total abdominal hysterectomy and left salpingo- oophorectomy postoperative day 1. Tolerating diet well. Ambulating the room without difficulty. Passing flatus. She is afebrile and hemodynamically stable. Plan Continue postop observation Attestations 2 Medical Necessity Statement*: In my professional opinion per admitting diagnosis Coding Level of Care Code Acute Code for Chg Fwd Diagnoses Status post total abdominal hysterectomy Z90.710
[2023-09-28] MEDS: simethicone 80 mg Chew PO (15:43)
[2023-09-28 18:41] VITALS: BP 107/59; PULSE 68; RESP 17; TEMP 36.9
[2023-09-28 20:48] VITALS: BP 109/67; PULSE 66; RESP 16; TEMP 36.8
[2023-09-29] MEDS: ibuprofen 800 mg tablet PO ×2 (01:31→10:46)
[2023-09-29 05:33] VITALS: BP 105/62; PULSE 71; RESP 16; TEMP 36.7
[2023-09-29] MEDS: HYDROcodone-acetaminophen 5-325 mg Tablet PO (07:40)
[2023-09-29] MEDS: docusate sodium 100 mg Capsule PO (10:46)
[2023-09-29 10:50] VITALS: BP 111/63; PULSE 64; RESP 16; TEMP 36.7
--- NOTE | 2023-09-29 12:49 | P.DS_ITS ---
Discharge Providers SEED CORE OPERATOR Date of Admission: 09/27/23 10:15 Date of Discharge: 09/29/23 Attending Provider at Admission: Reji Singh MD Attending Provider at Discharge: Reji Singh MD Primary Care Provider: Perla Meade MD Diagnoses at Discharge Discharge Diagnosis (1) Status post total abdominal hysterectomy: Status: Acute Reason for Visit Reason for Visit: N92.6 Hospital Course Hospital Course Mrs. Poe 33-year-old female with a history of chronic pelvic pain and abnormal uterine bleeding unresponsive to medical management. She was admitted for planned total abdominal hysterectomy and left salpingo-oophorectomy. The total abdominal hysterectomy was complicated by extensive adhesions of the uterus involving the uterus and the adnexas. and observation uncomplicated. Tolerating diet well. Ambulating without difficulty. No bleeding. She was counseled regarding pelvic rest for 6 weeks (no sex, no tampons, no vaginal douches). Return to the emergency room if any fever, increased bleeding or pain. Physical Exam Narrative: GA: Alert and oriented ?3. HEENT: WNL. Heart: Regular rate and rhythm. Lungs: Clear to auscultation bilaterally. Abdomen: Bowel sounds present, minimal tenderness, incision clean and dry, no redness, pain or edema. SUPERVISOR CONTINGENTS: No bleeding. Extremities: No edema, no cyanosis, no calves pain. Urinary Catheter Management: [place]: Cath Placed During This Visit: yes, but has since been removed by the nurse Reason for Continuing Indwelling Catheter: Decision to DC Catheter Urinary Catheter Date of Insertion: 09/27/23 Urinary Catheter Time of Insertion: 07:50 Date Urinary Catheter Removed: 09/27/23 Time Urinary Catheter Discontinued: 17:44 History History History 4 Term 3 0 Miscarriages/Ectopic 1 Living Children 3 Discharge Data Studies Completed and Pending Pending at discharge Category Date Time Status Pathology: Surgical [PTH] Routine Pth 09/27/23 09:39 Received Laboratory Results WBC 10.39 10^3/uL (3.29-11.43) 09/28/23 04:55 RBC 3.51 10^6/uL (3.85-5.65) L 09/28/23 04:55 Hgb 8.00 g/dL (11.27-16.99) L 09/28/23 04:55 Hct 25.8 % (36-47) L 09/28/23 04:55 MCV 73.5 fl (85-98) L 09/28/23 04:55 MCH 22.8 pg (27-33) L 09/28/23 04:55 MCHC 31.0 g/dL (30-55) 09/28/23 04:55 RDW 16.6 % (12.1-15.1) H 09/28/23 04:55 Plt Count 383 10^3/cmm (157-399) 09/28/23 04:55 MPV 10.1 fL (7.4-10.4) 09/28/23 04:55 Neut % (Auto) 52.5 % 09/27/23 06:40 Lymph % (Auto) 33.7 % 09/27/23 06:40 [place] % (Auto) 8.1 % 09/27/23 06:40 Eos % (Auto) 3.6 % 09/27/23 06:40 Baso % (Auto) 2.0 % 09/27/23 06:40 Neut # (Auto) 3.97 10^3/uL (1.8-7.7) 09/27/23 06:40 Lymph # (Auto) 2.6 10^3/uL (0.8-4.8) 09/27/23 06:40 [place] # (Auto) 0.6 10^3/uL (0.2-0.9) 09/27/23 06:40 Eos # (Auto) 0.3 10^3/uL (0.0-0.8) 09/27/23 06:40 Baso # (Auto) 0.2 10^3/uL (0.0-0.1) H 09/27/23 06:40 Nucleated RBC % (auto) 0 % 09/27/23 06:40 Nucleated RBCs # 0.0 /100WBC 09/27/23 06:40 Sodium 137 mmol/L (136-145) 09/27/23 06:40 Potassium 3.9 mmol/L (3.5-5.1) 09/27/23 06:40 Chloride 102 mmol/L (98-107) 09/27/23 06:40 Carbon Dioxide 25 mmol/L (22-29) 09/27/23 06:40 Anion Gap 13.9 (5-19) 09/27/23 06:40 BUN 13 mg/dL (6-20) 09/27/23 06:40 Creatinine 0.6 mg/dL (0.5-0.9) 09/27/23 06:40 GFR Calculation 115.9 mL/min (90-130) 09/27/23 06:40 Glucose 84 mg/dL (65-115) 09/27/23 06:40 Calculated Osmolality 283 mOsm/kg (285-295) L 09/27/23 06:40 Calcium 9.9 mg/dL (8.5-10.5) 09/27/23 06:40 Total Bilirubin 0.2 mg/dL (0.15-1.2) 09/27/23 06:40 AST 17 U/L (0-32) 09/27/23 06:40 ALT 16 U/L (0-33) 09/27/23 06:40 Alkaline Phosphatase 61 U/L (35-105) 09/27/23 06:40 Total Protein 7.2 g/dL (6.6-8.7) 09/27/23 06:40 Albumin 4.6 g/dL (3.5-5.2) 09/27/23 06:40 Globulin 2.6 g/dL (1.3-4.6) 09/27/23 06:40 Urine Color Yellow (Yellow) 09/27/23 06:20 Urine Appearance Sl hazy (CLEAR) A 09/27/23 06:20 Urine pH 5 (5-7) 09/27/23 06:20 Ur Specific [place] 1.030 (1.005-1.030) 09/27/23 06:20 Urine Protein Neg (Negative) 09/27/23 06:20 Urine Glucose (UA) Norm (Normal) 09/27/23 06:20 Urine Ketones 1+ (Negative) H 09/27/23 06:20 Urine Blood 2+ (Negative) H 09/27/23 06:20 Urine Nitrate Negative (Negative) 09/27/23 06:20 Urine Bilirubin Neg (Negative) 09/27/23 06:20 Urine Urobilinogen Norm mg/dL (Negative) 09/27/23 06:20 Ur Leukocyte Esterase Negative (Negative) 09/27/23 06:20 Urine RBC 0-4 /hpf (0-2) H 09/27/23 06:20 Urine WBC 15-25 /hpf (0-5) H 09/27/23 06:20 Ur Squamous Epith Cells 25-40 /hpf (0-5) H 09/27/23 06:20 Amorphous Sediment Not Reportable 09/27/23 06:20 Urine Bacteria 2+ /hpf (NONE) H 09/27/23 06:20 Urine Mucus 2+ /hpf 09/27/23 06:20 Urine HCG, Qual Negative (Negative) 09/27/23 06:02 Blood Type O Positive 09/27/23 06:40 Rho(D) Type Rh positive 09/27/23 06:40 Antibody Screen Negative 09/27/23 06:40 Vitals Last Vital Signs Temp 98.1 F 09/29/23 10:50 Pulse 64 09/29/23 10:50 Resp 16 09/29/23 10:50 BP 111/63 09/29/23 10:50 Pulse Ox 97 09/28/23 05:43 O2 Del Method Room Air 09/29/23 10:50 O2 Flow Rate 6 09/27/23 10:14 Results Labs OB ([facility]): Blood Type O Positive 09/27/23 Antibody Screen Negative 09/27/23 Hct 25.8 % (36-47) L 09/28/23 Hgb 8.00 g/dL (11.27-16.99) L 09/28/23 Rho(D) Type Rh positive 09/27/23 Plt Count 383 10^3/cmm (157-399) 09/28/23 TSH 1.19 uIU/mL (0.27-4.20) 06/30/23 FSH 6.0 mIU/mL 06/30/23 Ser , Semi-Qnt 1.00 mIU/mL 06/30/23 HCG, Qual Negative (Negative) 07/22/20 Pap Smear Interpret See note A 05/12/23 Prolactin 10.15 ng/mL (4.8-23.3) 06/30/23 Discharge Plan Discharge Patient Disposition: Home Condition: Stable Prescriptions: New acetaminophen 325 mg capsule 325 mg PO Q4H PRN (Reason: fever or pain) Qty: 60 0RF ibuprofen 800 mg tablet 800 mg PO TID PRN (Reason: pain) Qty: 60 0RF Colace 100 mg capsule 100 mg PO BID Qty: 60 0RF Iron (ferrous sulfate) 325 mg (65 mg iron) tablet 325 mg PO BID Qty: 60 0RF hydrocodone-acetaminophen 5-325 mg tablet 1 tab PO Q4H PRN (Reason: pain) Qty: 30 0RF Continued methylphenidate HCl [Concerta] 18 mg tablet extended release 24hr 18 mg PO DAILY Discharge Orders: Discharge Order (Routine); Ordered 09/29/23 Ordered By: Reji Singh Referrals: Reji Singh MD [Physician] - 11/07/23 2:15 pm Verena De La Garza APN, INO [Nurse Practitioner] - 10/12/23 1:15 pm Discharge Diet: Usual diet Discharge Activity: Limit activity as instructed Patient Instructions: Hysterectomy (GEN), OB Abdominal Surgery - [facility], OB Discharge Report, OB Food/Drug Interaction Guide, Opioid Safety Activity Restrictions/Additional Instructions: 1. Please call [facility] on next working day to make your post-operative appointment in 2 weeks. 2. Please stay home until you come back to the clinic on first post- hospatilization check up. 3. Please follow instructions on your medications CAREFULLY. 4. If you have abdominal incision, do not cover it unless dressing is necessary because of drainage. OK to shower, but avoid bath. Leave steri-strips until they fall off. If they are still on one week after surgery, you may remove th em. 5. If you had vaginal surgery or vaginal repair, Dr. Singh may instruct you to take SITZ bath. 6. Yellow, blood tinged odorous vaginal discharge is usually normal after hysterectomy or vaginal surgeries. 7. No SEXUAL INTERCOURSE, tampons, or douches until you are completely released from the post-operative care. 8. Avoid constipation by eating right and maybe using some Metamucil or Milk of Magnesia. 9. All prescription refills are given during the working hours. Please do no wait till it runs out. Call the clinic at [phone] before your medication runs out. The clinic will get in touch with your doctor to prescribe medications if necessary. 10. Please remain within 40 mile radius from our hospital because emergencies do happen now and then during the post-operative period. 11. If you have stairs at home, take one step at a time slowly and minimize the number of trips. It helps to stay in one floor for the next few days. No lifting except what you can lift by one hand until you are released from the post-operative care. 12. Driving is discouraged until you are well healed. It may be 3-4 weeks before you feel strong enough to drive. You should be able to turn and look through the rear window without pain and you should be able to push the brake pedal very hard without pain before you drive. No fast rules, but SAFETY should be your primary concern. DO NOT drive if you are on sedating medications such as narcotics. 13. Call the clinic (during working hours) to make urgent appointment or go to the Emergency room, if any of the following occurs: i. Vaginal bleeding becomes heavy, more than a period. ii. Incision becomes red and sore, or drains pus. iii. Your TEMPERATURE is over 100.4F or you have chill. iv. IV site becomes red and swollen (a little ``knot?? is usually OK) v. Persistent nausea and vomiting vi. Persistent constipation or diarrhea vii. Rash or allergic reaction to medications. Discharge Attestations SEED CORE OPERATOR Time Spent in Discharge Care*: greater than 30 min Coding Level of Care Code Acute Code for Chg Fwd Diagnoses Status post total abdominal hysterectomy Z90.710
[2023-09-29 13:05] VITALS: BP 111/63; PULSE 64; RESP 16; TEMP 36.7
== END 2023-09-29 13:08 | disposition home or self-care (01) | DRG 743 ==
LOC: OBGYN 11:31
PROVIDERS: Anesthesiology; Admitting Provider Obstetrics & Gynecology; PCP Family Medicine; Visit Provider Obstetrics & Gynecology
PROC: 0UT90ZZ Resection of Uterus, Open Approach (ICD-10-PCS; CPT 58150; principal; 2023-09-27 07:00)
PROC: 0UT90ZZ Resection of Uterus, Open Approach (ICD-10-PCS; CPT 58720; 2023-09-27 07:00)
DX: N93.9 Abnormal uterine and vaginal bleeding, unspecified (principal); R10.2 Pelvic and perineal pain; G89.29 Other chronic pain; F12.90 Cannabis use, unspecified, uncomplicated; Z72.0 Tobacco use; Z80.41 Family history of malignant neoplasm of ovary; Z80.3 Family history of malignant neoplasm of breast
CPT/HCPCS: 36415; 51702; 80048; 80053; 81001; 81025; 84703; 85025; 85027; 86850; 86900; 88307; C9290; J1100; J1170; J1200; J1885; J1956; J2250; J2371; J2405; J2704; J2710; J3010; J3370; J3490; J7030; J7040; J7050; J7121

== ENCOUNTER → 2023-11-25 15:11 | Outpatient (BNVA) | payer OTHER, SELFPAY | PROVIDERS: PCP Family Medicine; Visit Provider Obstetrics & Gynecology | DX: N83.8 Other noninflammatory disorders of ovary, fallopian tube and broad ligament (principal); R10.2 Pelvic and perineal pain | CPT/HCPCS: 84146 ==

== ENCOUNTER 2023-11-30 08:36 | Outpatient (CLI) | payer OTHER, SELFPAY ==
--- NOTE | 2023-11-30 09:00 | MM_ITS ---
WS: [id number] Bilateral diagnostic 3D tomosynthesis digital mammogram, 11/30/2023 Clinical Data: N63.10 - Unspecified lump in the right breast, unspecifie... Comparison: None. Findings: Both breasts show heterogeneous density. The left breast shows no spiculated masses nor clustered vick cifications. The right breast shows no spiculated masses nor clustered calcifications. There are gopal ers of 2 palpable right breast regions. One marker is at the 11 o'clock position and the other is at the 9 o'clock position. No abnormalities are imaged in the right breast. Impression: 1. Negative left breast. 2. Negative right breast and recommend right breast ultrasound. MM/[place] [id number] BIRADS: 2-Benign FOLLOW UP: See Report The CAD steel checker was used.
--- NOTE | 2023-11-30 09:15 | US_ITS ---
WS: [id number] Right breast ultrasound, 11/30/2023 Clinical Data: N63.10 - Unspecified lump in the right breast, unspecifie... Comparison: Right breast ultrasound, 04/20/2019 Findings: There are 2 areas in the right breast of palpable lesions. The 7:00 lesion in the lower outer quadran t showed no abnormalities. The second lesion at the 10 o'clock position revealed a well defined oval density measuring 0.7 x 1.0 x 1.2 cm. There was through transmission of this lesion. There is mixed e chogenicity and this lesion could represent a fibroadenoma or a lymph node. Impression: 1. Palpable lesion at 7:00 in the lower outer quadrant right breast showed only normal breast tissue. 2. Palpable lesion at the 10 o'clock position demonstrated a 1.2 cm well bordered oval density which probably represents a lymph node or fibroadenoma. 3. Recommend clinical follow-up. US/US breast RT limited* [id number] BIRADS: 2-Benign FOLLOW UP: See Report
== END 2023-11-30 08:37 | disposition home or self-care (01) ==
LOC: RAD 08:39
PROVIDERS: PCP Family Medicine; Visit Provider Obstetrics & Gynecology
DX: N63.11 Unspecified lump in the right breast, upper outer quadrant (principal); N63.13 Unspecified lump in the right breast, lower outer quadrant; R92.333 Mammographic heterogeneous density, bilateral breasts
CPT/HCPCS: 76642; 77062; G0279

== ENCOUNTER 2023-12-28 14:08 | Emergency (ER) | payer OTHER, SELFPAY ==
[2023-12-28] VITALS (11 sets, daily range): BP systolic 128–147; BP diastolic 82–98; PULSE 73–124; RESP 15–22; TEMP 37.1; O2SAT 98–100
--- NOTE | 2023-12-28 14:28 | XRR_ITS ---
PROCEDURE INFORMATION: Exam: XR Chest Exam date and time: 12/28/2023 2:36 PM Age: 33 years old Clinical indication: Shortness of breath; Additional info: SOB TECHNIQUE: Imaging protocol: Radiologic exam of the chest. Views: 1 view. COMPARISON: CR XR chest 1V portable [id number] 07/22/2020 10:28 PM FINDINGS: Lungs: Unremarkable. No consolidation. Pleural spaces: Unremarkable. No pleural effusion. No pneumothorax. Heart/Mediastinum: Unremarkable. No cardiomegaly. Bones/joints: Moderate right thoracic curvature. XR/XR chest 1V portable [id number] IMPRESSION: No acute findings.
--- NOTE | 2023-12-28 14:33 | ECG_ITS ---
[facility] Test Date: 2023-12-28 Pat Name: Madisyn Poe Department: Room: Gender: Female Rolfer: : 1990 Requested By: Kendra Hicks Order Number: [id number] Danae MD: Anthony Griffin M.D. Measurements Intervals [place] Rate: 113 P: 75 ID: [id number] QRS: 83 QRSD: 86 T: 37 QT: 302 QTc: 414 Interpretive Statements SINUS TACHYCARDIA WITH SHORT ID INTERVAL MINIMAL ST DEPRESSION [0.025+ mV ST DEPRESSION] ABNORMAL RHYTHM ECG Compared to ECG 07/22/2020 22:57:34 Short ID interval now present ST (T wave) deviation now present Sinus rhythm no longer present T-wave abnormality no longer present Electronically Signed On 12-28-2023 15:27:56 CDT by Anthony Griffin M.D. [email or web address]
[2023-12-28 15:15] LABS: Basophils # 0.1 10^3/uL (0.0-0.1); Basophils % 1.2 %; Eosinophils # 0.1 10^3/uL (0.0-0.8); Eosinophils % 1.1 %; Hematocrit 36.4 % (36-47); Lymphocytes # 2.2 10^3/uL (0.8-4.8); Lymphocytes % 21.1 %; Mean Corpuscular HGB Conc 31.6 g/dL (30-55); Mean Corpuscular Hemoglobin 21.7 pg (27-33); Mean Corpuscular Volume 68.7 fl (85-98); Mean Platelet Volume 9.9 fL (7.4-10.4); Monocytes # 0.6 10^3/uL (0.2-0.9); Monocytes % 6.1 %; Neutrophils # 7.21 10^3/uL (1.8-7.7); Neutrophils % 70.1 %; Nucleated Red Blood Cells % 0 %; Platelet Count 335 10^3/cmm (157-399); Red Cell Distribution Width 20.7 % (12.1-15.1); White Blood Count 10.28 10^3/uL (3.29-11.43)
--- NOTE | 2023-12-28 15:30 | ED_ITS ---
Documented by User: Steve Shelton DO 12/29/23 05:22 HPI - SOB/Dyspnea 2 General: Chief Complaint: Shortness of Breath/Dyspnea Stated Complaint: sob, shaking, tense Time Seen by Provider: 12/28/23 15:19 Source: patient Mode of arrival: ambulatory History of Present Illness: HPI Narrative: 33-year-old female presents emergency ro om with complaint of shortness of breath. States she had ran a couple laps around the playground at school and she got short of breath weak and shaky and some paresthesias on the right side these are all resolved at this point. She never had any chest pain. Not recently been ill fever sweats or chills. She has previously had a hysterectomy due to precancerous changes evidently (?). She has a lump in the right breast that is to be biopsied soon. MD elicited complaint: shortness of breath Onset (ago): hour(s) Exacerbating factors: nothing Relieving factors: nothing Associated symptoms: Deny abdominal pain, chest congestion, chest pain, cough, diaphoresis, dizziness, extremity pain, fever(s), hemoptysis, lightheadedness, myalgias, nausea, orthopnea, palpitations, paresthesias, polydipsia, polyuria, rash, sense of impending doom, syncope or vomiting Treatment prior to arrival: none Review of Systems 2 Const: Denies: fever(s), chills or diaphoresis Card: Denies: chest pain, palpitations, lightheadedness, syncope or orthopnea Resp: Reports: dyspnea; Denies: productive cough, non-productive cough, wheezing, hemoptysis or chest congestion GI: Denies: abdominal pain, nausea or vomiting : Denies: flank pain, dysuria, urinary frequency or urinary urgency Musc: Denies: neck pain, back pain or extremity pain Skin/Breast: Denies: rash Neuro: Denies: dizziness Endo: Denies: polyuria or polydipsia PFSH ED 2 PFSH: Medical History No pertinent past medical history neghx: htn,dm,thyroid,dvt/pe PCP: Dr. Meade Surgical History History of salpingectomy (~2015) right tube was removed at the time of her . H/O section -2009 2013 2015 H/O tubal ligation (~2015) performed at the same time as her 3rd section H/O unilateral oophorectomy (~09/27/23) LEFT OVARY REMOVED AT TIME OF HYST; right ovary remains H/O: hysterectomy (~09/27/23) JENNYFER, Left-oophorectomy, LINDA-- multiple dense adhesions. Left ovary demonstrated endometrioma; erformed by Francisco SCHULTZ for AUB, and Pelvic Pain Family History Mother Ovarian cancer Family/Other Breast cancer Paternal aunt Father Diabetes Denies family history of Cervical cancer Colon cancer Hypertension Uterine cancer Thyroid disease Stroke Physical Exam 2 Const: COMMON NORMALS: no acute distress GENERAL APPEARANCE: cooperative and comfortable ORIENTATION/CONSCIOUSNESS: Yes awake, Yes oriented to person, Yes oriented to place and Yes oriented to time HENMT: COMMON NORMALS: normocephalic, atraumatic and hearing grossly normal bilaterally HEAD & SCALP: normocephalic and atraumatic Resp: COMMON NORMALS: normal respiratory effort, No retractions, No use of accessory muscles and clear to auscultation bilaterally AUSCULTATION: clear to auscultation bilaterally Cardio: COMMON NORMALS: regular rate, regular rhythm and No murmurs present (Cardio) RATE: regular rate RHYTHM: regular rhythm GI: COMMON NORMALS: Soft to palpation and No hepatosplenomegaly present A USCULTATION: Yes normoactive bowel sounds PALPATION: Yes Soft to palpation, No Tenderness to palpation present (GI), No Guarding due to palpation present (GI) and Yes No hepatosplenomegaly present Extremity: COMMON NORMALS: normal to inspection, capillary refill normal, no clubbing, cyanosis or edema, no calf tenderness and no pedal edema Neuro: SENSORIUM/ORIENTATION: Yes oriented to person, Yes oriented to place and Yes oriented to time Skin: COMMON NORMALS: no rashes or lesions noted GENERAL SKIN EXAM: no rashes or lesions noted Course 2 Vital Signs: Vital signs: Vital Signs Temperature 98.7 F 12/28/23 14:12 Pulse Rate 88 12/28/23 20:03 Respiratory Rate 22 H 12/28/23 20:03 Blood Pressure 130/95 04/17/24 20:03 Pulse Oximetry 100 12/28/23 20:03 Oxygen Delivery Me thod Room Air 12/28/23 19:30 MDM - SOB/Dyspnea Medical Decision Making Care signed out to Dr. Maria at change of shift. See final notes for diagnosis and disposition. I have discussed the patient's case with the off going physician <Dr. Shelton> and I have assumed care of the patient. We have discussed the current lab/radiographic results that have been resulted and the pending tests. Lab Data 12/28/23 15:00 12/28/23 15:00 Labs/Radiology: Radiology Impressions Chest X-Ray 12/28/23 14:28 IMPRESSION: No acute findings. Laboratory Results WBC 10.28 10^3/uL (3.29-11.43) 12/28/23 15:00 RBC 5.30 10^6/uL (3.85-5.65) 12/28/23 15:00 Hgb 11.50 g/dL (11.27-16.99) 12/28/23 15:00 Hct 36.4 % (36-47) 12/28/23 15:00 MCV 68.7 fl (85-98) L 12/28/23 15:00 MCH 21.7 pg (27-33) L 12/28/23 15:00 MCHC 31.6 g/dL (30-55) 12/28/23 15:00 RDW 20.7 % (12.1-15.1) H 12/28/23 15:00 Plt Count 335 10^3/cmm (157-399) 12/28/23 15:00 MPV 9.9 fL (7.4-10.4) 12/28/23 15:00 Neut % (Auto) 70.1 % 12/28/23 15:00 Lymph % (Auto) 21.1 % 12/28/23 15:00 Cecil % (Auto) 6.1 % 12/28/23 15:00 Eos % (Auto) 1.1 % 12/28/23 15:00 Baso % (Auto) 1.2 % 12/28/23 15:00 Neut # (Auto) 7.21 10^3/uL (1.8-7.7) 12/28/23 15:00 Lymph # (Auto) 2.2 10^3/uL (0.8-4.8) 12/28/23 15:00 Cecil # (Auto) 0.6 10^3/uL (0.2-0.9) 12/28/23 15:00 Eos # (Auto) 0.1 10^3/uL (0.0-0.8) 12/28/23 15:00 Baso # (Auto) 0.1 10^3/uL (0.0-0.1) 12/28/23 15:00 Nucleated RBC % (auto) 0 % 12/28/23 15:00 Nucleated RBCs # 0.0 /100WBC 12/28/23 15:00 D-Dimer 0.30 ug/mLFEU (0-0.59) 12/28/23 15:00 Sodium 134 mmol/L (136-145) L 12/28/23 15:00 Potassium 4.0 mmol/L (3.5-5.1) 12/28/23 15:00 Chloride 100 mmol/L (98-107) 12/28/23 15:00 Carbon Dioxide 22 mmol/L (22-29) 12/28/23 15:00 Anion Gap 16.0 (5-19) 12/28/23 15:00 BUN 16 mg/dL (6-20) 12/28/23 15:00 Creatinine 0.7 mg/dL (0.5-0.9) 12/28/23 15:00 GFR Calculation 97.0 mL/min (90-130) 12/28/23 15:00 Glucose 95 mg/dL (65-115) 12/28/23 15:00 Calculated Osmolality 279 mOsm/kg (285-295) L 12/28/23 15:00 Calcium 9.3 mg/dL (8.5-10.5) 12/28/23 15:00 Total Bilirubin 0.2 mg/dL (0.15-1.2) 12/28/23 15:00 AST 21 U/L (0-32) 12/28/23 15:00 ALT 22 U/L (0-33) 12/28/23 15:00 Alkaline Phosphatase 67 U/L (35-105) 12/28/23 15:00 Troponin T Baseline < 6 ng/L (0-10) 12/28/23 15:00 Troponin T 120 Minute 6.30 ng/L (0-10) 12/28/23 18:00 Delta Troponin T 0.40109 ABS# (0-10) 12/28/23 18:00 Total Protein 7.8 g/dL (6.6-8.7) 12/28/23 15:00 Albumin 4.6 g/dL (3.5-5.2) 12/28/23 15:00 Globulin 3.2 g/dL (1.3-4.6) 12/28/23 15:00 HCG, Qual Negative (Negative) 12/28/23 15:00 Discharge Plan Discharge Patient Disposition: Home Clinical Impression: Exertional dyspnea, Acute hyperventilation syndrome Condition: Stable Prescriptions: No Action acetaminophen 325 mg capsule 325 mg PO Q4H PRN (Reason: fever or pain) Qty: 60 0RF ibuprofen 800 mg tablet 800 mg PO TID PRN (Reason: pain) Qty: 60 0RF ferrous sulfate [Iron (ferrous sulfate)] 325 mg (65 mg iron) tablet 325 mg PO BID Qty: 60 0RF methylphenidate HCl 27 mg tablet extended release 24hr 27 mg PO QAM ondansetron HCl 4 mg tablet 4 mg PO Q6H PRN (Reason: Nausea) Discharge Orders: Discharge ED (Routine); Ordered 12/28/23 Ordered By: Manpreet Maria Referrals: Perla Meade MD [Primary Care Provider] - Discharge Diet: Usual diet Discharge Activity: Resume usual activity Patient Instructions: Opioid Safety, Pain Management Activity Restrictions/Additional Instructions: Activity Restrictions/Additional Instructions: Thank you for choosing [facility] for your healthcare needs today. Please realize that you were seen in the Emergency Department and that we are providing you with an emergency medical screening exam and this may not be a complete and all inclusive of all the testing and or medical work-up that you may need to determine your ailment or severity of your illness. It is very important that you follow-up as instructed with your Primary care provider or Specialist for additional evaluation and to discuss your medical treatment plan. You may return to the Emergency Department should you have concerns or if your condition changes or worsens in any way. Coding Level of Care Code ED Manager Professional Development for Chg Fwd Documented by User: Manpreet Maria MD 12/28/23 19:43 HPI - SOB/Dyspnea 2 General: Chief Complaint: Shortness of Breath/Dyspnea Stated Complaint: sob, shaking, tense Time Seen by Provider: 12/28/23 15:19 PFSH ED 2 PFSH: Medical History No pertinent past medical history neghx: htn,dm,thyroid,dvt/pe PCP: Dr. Meade Surgical History History of salpingectomy (~2015) right tube was removed at the time of her . H/O section -2009 2013 2015 H/O tubal ligation (~2015) performed at the same time as her 3rd section H/O unilateral oophorectomy (~09/27/23) LEFT OVARY REMOVED AT TIME OF HYST; right ovary remains H/O: hysterectomy (~09/27/23) JENNYFER, Left-oophorectomy, LINDA-- multiple dense adhesions. Left ovary demonstrated endometrioma; erformed by Francisco SCHULTZ for AUB, and Pelvic Pain Family History Mother Ovarian cancer Family/Other Breast cancer Paternal aunt Father Diabetes Denies family history of Cervical cancer Colon cancer Hypertension Uterine cancer Thyroid disease Stroke Course 2 Vital Signs: Vital signs: Vital Signs Temperature 98.7 F 12/28/23 14:12 Pulse Rate 88 12/28/23 20:03 Respiratory Rate 22 H 12/28/23 20:03 Blood Pressure 130/95 12/28/23 20:03 Pulse Oximetry 100 12/28/23 20:03 Oxygen Delivery Me thod Room Air 12/28/23 19:30 MDM - SOB/Dyspnea Medical Decision Making I have discussed the patient's case with the off going physician <Dr. Shelton> and I have assumed care of the patient. We have discussed the current lab/radiographic results that have been resulted and the pending tests. Medical Records I reviewed the patient's medical records. Lab Data I reviewed the patient's lab results. 12/28/23 15:00 12/28/23 15:00 Labs/Radiology: Radiology Impressions Chest X-Ray 12/28/23 14:28 IMPRESSION: No acute findings. Laboratory Results WBC 10.28 10^3/uL (3.29-11.43) 12/28/23 15:00 RBC 5.30 10^6/uL (3.85-5.65) 12/28/23 15:00 Hgb 11.50 g/dL (11.27-16.99) 12/28/23 15:00 Hct 36.4 % (36-47) 12/28/23 15:00 MCV 68.7 fl (85-98) L 12/28/23 15:00 MCH 21.7 pg (27-33) L 12/28/23 15:00 MCHC 31.6 g/dL (30-55) 12/28/23 15:00 RDW 20.7 % (12.1-15.1) H 12/28/23 15:00 Plt Count 335 10^3/cmm (157-399) 12/28/23 15:00 MPV 9.9 fL (7.4-10.4) 12/28/23 15:00 Neut % (Auto) 70.1 % 12/28/23 15:00 Lymph % (Auto) 21.1 % 12/28/23 15:00 Cecil % (Auto) 6.1 % 12/28/23 15:00 Eos % (Auto) 1.1 % 12/28/23 15:00 Baso % (Auto) 1.2 % 12/28/23 15:00 Neut # (Auto) 7.21 10^3/uL (1.8-7.7) 12/28/23 15:00 Lymph # (Auto) 2.2 10^3/uL (0.8-4.8) 12/28/23 15:00 Cecil # (Auto) 0.6 10^3/uL (0.2-0.9) 12/28/23 15:00 Eos # (Auto) 0.1 10^3/uL (0.0-0.8) 12/28/23 15:00 Baso # (Auto) 0.1 10^3/uL (0.0-0.1) 12/28/23 15:00 Nucleated RBC % (auto) 0 % 12/28/23 15:00 Nucleated RBCs # 0.0 /100WBC 12/28/23 15:00 D-Dimer 0.30 ug/mLFEU (0-0.59) 12/28/23 15:00 Sodium 134 mmol/L (136-145) L 12/28/23 15:00 Potassium 4.0 mmol/L (3.5-5.1) 12/28/23 15:00 Chloride 100 mmol/L (98-107) 12/28/23 15:00 Carbon Dioxide 22 mmol/L (22-29) 12/28/23 15:00 Anion Gap 16.0 (5-19) 12/28/23 15:00 BUN 16 mg/dL (6-20) 12/28/23 15:00 Creatinine 0.7 mg/dL (0.5-0.9) 12/28/23 15:00 GFR Calculation 97.0 mL/min (90-130) 12/28/23 15:00 Glucose 95 mg/dL (65-115) 12/28/23 15:00 Calculated Osmolality 279 mOsm/kg (285-295) L 12/28/23 15:00 Calcium 9.3 mg/dL (8.5-10.5) 12/28/23 15:00 Total Bilirubin 0.2 mg/dL (0.15-1.2) 12/28/23 15:00 AST 21 U/L (0-32) 12/28/23 15:00 ALT 22 U/L (0-33) 12/28/23 15:00 Alkaline Phosphatase 67 U/L (35-105) 12/28/23 15:00 Troponin T Baseline < 6 ng/L (0-10) 12/28/23 15:00 Troponin T 120 Minute 6.30 ng/L (0-10) 12/28/23 18:00 Delta Troponin T 0.20487 ABS# (0-10) 12/28/23 18:00 Total Protein 7.8 g/dL (6.6-8.7) 12/28/23 15:00 Albumin 4.6 g/dL (3.5-5.2) 12/28/23 15:00 Globulin 3.2 g/dL (1.3-4.6) 12/28/23 15:00 HCG, Qual Negative (Negative) 12/28/23 15:00 All radiology interpretation(s) finalized by discharge Discharge Plan Discharge Patient Disposition: Home Clinical Impression: Exertional dyspnea, Acute hyperventilation syndrome Condition: Stable Prescriptions: No Action acetaminophen 325 mg capsule 325 mg PO Q4H PRN (Reason: fever or pain) Qty: 60 0RF ibuprofen 800 mg tablet 800 mg PO TID PRN (Reason: pain) Qty: 60 0RF ferrous sulfate [Iron (ferrous sulfate)] 325 mg (65 mg iron) tablet 325 mg PO BID Qty: 60 0RF methylphenidate HCl 27 mg tablet extended release 24hr 27 mg PO QAM ondansetron HCl 4 mg tablet 4 mg PO Q6H PRN (Reason: Nausea) Discharge Orders: Discharge ED (Routine); Ordered 12/28/23 Ordered By: Manpreet Maria Referrals: Perla Meade MD [Primary Care Provider] - Discharge Diet: Usual diet Discharge Activity: Resume usual activity Patient Instructions: Opioid Safety, Pain Management Activity Restrictions/Additional Instructions: Activity Restrictions/Additional Instructions: Thank you for choosing [facility] for your healthcare needs today. Please realize that you were seen in the Emergency Department and that we are providing you with an emergency medical screening exam and this may not be a complete and all inclusive of all the testing and or medical work-up that you may need to determine your ailment or severity of your illness. It is very important that you follow-up as instructed with your Primary care provider or Specialist for additional evaluation and to discuss your medical treatment plan. You may return to the Emergency Department should you have concerns or if your condition changes or worsens in any way. Coding Level of Care Code ED Manager Professional Development for Epifanio Glover
[2023-12-28 15:33] LABS: Alanine Aminotransferase 22 U/L (0-33); Albumin Level 4.6 g/dL (3.5-5.2); Alkaline Phosphatase 67 U/L (35-105); Aspartate Amino Transferase 21 U/L (0-32); Blood Urea Nitrogen 16 mg/dL (6-20); Calcium 9.3 mg/dL (8.5-10.5); Carbon Dioxide 22 mmol/L (22-29); Chloride 100 mmol/L (98-107); Creatinine Clr Calc Pharmacy 86.2774; Globulin 3.2 g/dL (1.3-4.6); Glucose 95 mg/dL (65-115); Osmolality Calculated 279 mOsm/kg (285-295); Sodium 134 mmol/L (136-145); Total Bilirubin 0.2 mg/dL (0.15-1.2); Total Protein 7.8 g/dL (6.6-8.7)
--- NOTE | 2023-12-28 15:38 | ECG_ITS ---
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 Measurements Intervals [place] Rate: 112 P: 42 VA: 93 QRS: 62 QRSD: 84 T: 15 QT: 304 QTc: 416 Interpretive Statements SINUS TACHYCARDIA WITH SHORT VA INTERVAL ABNORMAL RHYTHM ECG Compared to ECG 07/22/2020 22:57:34 Short VA interval now present Sinus rhythm no longer present T-wave abnormality no longer present Electronically Signed On 12-29-2023 6:37:02 CDT by Jv Oliveros M.D. [id number]
[2023-12-28 15:41] LABS: HCG, Serum Qual Negative (Negative)
--- NOTE | 2023-12-28 15:44 | ECG_ITS ---
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 Measurements Intervals [place] Rate: 80 P: 49 OR: 124 QRS: 62 QRSD: 97 T: 27 QT: 367 QTc: 425 Interpretive Statements SINUS RHYTHM Compared to ECG 12/28/2023 14:33:03 Sinus tachycardia no longer present Short OR interval no longer present ST (T wave) deviation no longer present Electronically Signed On 12-29-2023 6:37:41 CDT by Jv Oliveros M.D. [email or web address]/store/[id number]
[2023-12-28 16:18] LABS: Troponin(5th) Baseline < 6 ng/L (0-10)
--- NOTE | 2023-12-28 17:38 | ECG_ITS ---
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 Measurements Intervals [place] Rate: 69 P: 46 UT: 134 QRS: 64 QRSD: 96 T: 40 QT: 378 QTc: 408 Interpretive Statements SINUS RHYTHM Compared to ECG 12/28/2023 15:44:58 No significant changes Electronically Signed On 12-29-2023 6:37:17 CDT by Jv Oliveros M.D. [id number]
[2023-12-28 18:35] LABS: Troponin 5 2HR Delta 0.30001 ABS# (0-10)
== END 2023-12-28 20:03 | disposition home or self-care (01) ==
PROVIDERS: Family Medicine; Physician Assistant; Emergency Provider Internal Medicine; PCP Family Medicine
DX: R06.00 Dyspnea, unspecified (principal); F45.8 Other somatoform disorders
CPT/HCPCS: 36415; 71045; 80053; 84484; 84703; 85025; 85378; 93005; 99285

== ENCOUNTER 2024-01-28 00:08 | Inpatient (IN) | payer OTHER, SELFPAY ==
[2024-01-28] VITALS (64 sets, daily range): BP systolic 87–158; BP diastolic 50–99; PULSE 64–94; RESP 12–28; TEMP 36.6–37.1; O2SAT 93–100; BMI 19.7
--- NOTE | 2024-01-28 00:12 | CTR_ITS ---
PROCEDURE INFORMATION: Exam: CT Head Without Contrast Exam date and time: 01/28/2024 12:08 AM Age: 33 years old Clinical indication: Stroke-like symptoms; Speech disturbance; Right facial droop; RT upper extremity and RT lower extremity weakness; Additional info: Sudden onset of RT facial droop with slight slurred speech. Numbness to RT upper extremity and weakness to RT lower extremity. Last known well time of 2240. TECHNIQUE: Imaging protocol: Computed tomography of the head without contrast. Radiation optimization: All CT scans at this facility use at least one of these dose optimization techniques: automated exposure control; mA and/or kV adjustment per patient size (includes targeted exams where dose is matched to clinical indication); or iterative reconstruction. Other technique: STROKE PROTOCOL was implemented. COMPARISON: No relevant prior studies available. RADIATION DOSE METRICS: Total DLP (mGy-cm): 998.23 FINDINGS: Brain: No focal hemorrhage or midline shift is identified. Cerebral ventricles: No ventriculomegaly or evidence of acute hydrocephalus. Paranasal sinuses: The partially assessed sinuses are grossly clear. Mastoid air cells: Visualized mastoid air cells are well aerated with only minimal opacity. Bones: Unremarkable. No acute fracture. Soft tissues: Unremarkable. CT/CT head wo con* [id number] IMPRESSION: No acute intracranial abnormality. ASSESSMENT: ASPECTS ([place] Stroke Program Early CT Score) is 10.
--- NOTE | 2024-01-28 00:13 | CTR_ITS ---
PROCEDURE INFORMATION: Exam: CTA Head With Contrast, Arteriography Exam date and time: 01/28/2024 12:16 AM Age: 33 years old Clinical indication: Stroke-like symptoms; Speech disturbance; Right facial droop; RT upper extremity and RT lower extremity weakness; Additional info: Poss CVA TECHNIQUE: Imaging protocol: Computed tomographic angiography of the head with contrast. Exam focused on the arteries. 3D rendering (Not supervised by radiologist): MIP and/or 3D reconstructed images were created by the technologist. Radiation optimization: All CT scans at this facility use at least one of these dose optimization techniques: automated exposure control; mA and/or kV adjustment per patient size (includes targeted exams where dose is matched to clinical indication); or iterative reconstruction. Contrast material: OMNI 350; Contrast volume: 86 ml; Contrast route: INTRAVENOUS (IV); COMPARISON: CT head wo con* [id number] 01/28/2024 12:08 AM RADIATION DOSE METRICS: Total DLP (mGy-cm): 355.4 FINDINGS: ANTERIOR CIRCULATION: Right internal carotid artery: Intracranial segment is patent with no significant stenosis. No aneurysm. Right middle cerebral artery: No occlusion or significant stenosis. No aneurysm. Right anterior cerebral artery: No occlusion or significant stenosis. No aneurysm. Left internal carotid artery: Intracranial segment is patent with no significant stenosis. No aneurysm. Left middle cerebral artery: No occlusion or significant stenosis. No aneurysm. Left anterior cerebral artery: No occlusion or significant stenosis. No aneurysm. POSTERIOR CIRCULATION: Right vertebral artery: No occlusion or significant stenosis. No aneurysm. Left vertebral artery: No occlusion or significant stenosis. No aneurysm. Basilar artery: No occlusion or significant stenosis. No aneurysm. Right posterior cerebral artery: No occlusion or significant stenosis. No aneurysm. Left posterior cerebral artery: No occlusion or significant stenosis. No aneurysm. Brain: No focal hemorrhage or midline shift identified. Cerebral ventricles: No evidence of ventriculomegaly or hydrocephalus. The ventricles seem age-appropriate. Bones/joints: Unremarkable. No acute fracture. Soft tissues: Unremarkable. PROCEDURE INFORMATION: Exam: CTA Neck With Contrast Exam date and time: 01/28/2024 12:16 AM Age: 33 years old Clinical indication: Stroke-like symptoms; Speech disturbance; Right facial droop; RT upper extremity and RT lower extremity weakness; Additional info: Poss CVA TECHNIQUE: Imaging protocol: Computed tomographic angiography of the neck with contrast. Exam focused on the cervical segments of the vasculature. 3D rendering (Not supervised by radiologist): MIP and/or 3D reconstructed images were created by the technologist. Radiation optimization: All CT scans at this facility use at least one of these dose optimization techniques: automated exposure control; mA and/or kV adjustment per patient size (includes targeted exams where dose is matched to clinical indication); or iterative reconstruction. Contrast material: OMNI 350; Contrast volume: 86 ml; Contrast route: INTRAVENOUS (IV); COMPARISON: CT head wo con* [id number] 01/28/2024 12:08 AM RADIATION DOSE METRICS: Total DLP (mGy-cm): 355.4 FINDINGS: Right common carotid artery: No stenosis. No dissection or occlusion. Right internal carotid artery: No stenosis of the extracranial segment. No dissection or occlusion. Right external carotid artery: No occlusion or high-grade stenosis identififed. Left common carotid artery: No stenosis. No dissection or occlusion. Left internal carotid artery: No stenosis of the extracranial segment. No dissection or occlusion. Left external carotid artery: No occlusion or high-grade stenosis identififed. Right vertebral artery: No stenosis. No dissection or occlusion. Left vertebral artery: No stenosis. No dissection or occlusion. Soft tissues: No significant soft tissue swelling or other acute finding noted. Bones/joints: No acute fracture. CT/CT angio headneck* [id number] IMPRESSION: No large vessel stenosis or occlusion. IMPRESSION: No stenosis or occlusion. REFERENCES: NASCET CRITERIA. The degree of stenosis in the cervical segment of the internal carotid artery is based on NASCET criteria. Normal is no stenosis. Mild is less than 50% stenosis. Moderate is 50-69% stenosis. Severe is 70% to 99% stenosis. Total occlusion is no detectable patent lumen.
[2024-01-28] MEDS: iohexol 350 mg/mL 500 mL Btl (per mL) IV (00:22)
[2024-01-28 00:27] LABS: Basophils # 0.1 10^3/uL (0.0-0.1); Basophils % 0.9 %; Eosinophils # 0.3 10^3/uL (0.0-0.8); Eosinophils % 2.8 %; Hematocrit 40.4 % (36-47); Lymphocytes # 2.8 10^3/uL (0.8-4.8); Lymphocytes % 23.5 %; Mean Corpuscular HGB Conc 32.4 g/dL (30-55); Mean Corpuscular Hemoglobin 22.9 pg (27-33); Mean Corpuscular Volume 70.5 fl (85-98); Mean Platelet Volume 10.6 fL (7.4-10.4); Monocytes # 1.2 10^3/uL (0.2-0.9); Monocytes % 9.7 %; Neutrophils # 7.53 10^3/uL (1.8-7.7); Neutrophils % 62.8 %; Nucleated Red Blood Cells % 0 %; Platelet Count 379 10^3/cmm (157-399); Red Blood Count 5.73 10^6/uL (3.85-5.65); Red Cell Distribution Width 23.2 % (12.1-15.1); White Blood Count 11.98 10^3/uL (3.29-11.43)
--- NOTE | 2024-01-28 00:28 | ECG_ITS ---
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 Measurements Intervals [place] Rate: 86 P: 59 [place]: 108 QRS: 75 QRSD: 91 T: 46 QT: 362 QTc: 435 Interpretive Statements SINUS RHYTHM NONSPECIFIC T-WAVE ABNORMALITY Compared to ECG 12/28/2023 18:31:45 No significant change Electronically Signed On 01-28-2024 12:10:55 CDT by Cheo Lopez M.D. [email or web address] medical centerJack and Jake's/store/[id number]
[2024-01-28 00:34] LABS: INR 0.92 (0.8-1.2)
[2024-01-28 00:35] LABS: Partial Thromboplastin Time 28.3 SECONDS (23.9-36.7)
[2024-01-28 00:39] LABS: Alanine Aminotransferase 17 U/L (0-33); Albumin Level 4.4 g/dL (3.5-5.2); Alkaline Phosphatase 77 U/L (35-105); Aspartate Amino Transferase 21 U/L (0-32); Blood Urea Nitrogen 12 mg/dL (6-20); Calcium 9.3 mg/dL (8.5-10.5); Carbon Dioxide 21 mmol/L (22-29); Chloride 100 mmol/L (98-107); Creatinine Clr Calc Pharmacy 77.5168; Globulin 3.4 g/dL (1.3-4.6); Glomerular Filtration Rate 83.1 mL/min (90-130); Glucose 146 mg/dL (65-115); Osmolality Calculated 282 mOsm/kg (285-295); Sodium 135 mmol/L (136-145); Total Bilirubin 0.2 mg/dL (0.15-1.2); Total Protein 7.8 g/dL (6.6-8.7)
[2024-01-28 00:40] LABS: Anion Gap 17.2 (5-19); Potassium 3.2 mmol/L (3.5-5.1)
[2024-01-28 00:40] LABS: Glucose Point of Care 118 mg/dL (70-110)
[2024-01-28] MEDS: tenecteplase 50mg Box (ACUTE MYOCARIDAL INFARCTION) 30 MG IVP (00:43)
--- NOTE | 2024-01-28 00:57 | W.ED.NEUROSD ---
HPI - Neuro Symptoms/Deficit General: Chief Complaint: Neuro Symptoms/Deficit Stated Complaint: Stroke alert Time Seen by Provider: 01/28/24 00:18 History of Present Illness: 33-year-old female with a history of hypertension. She notes she was driving her car at 1041 this evening. She began to feel strange. She had weakness to her right side. She made it to a friend's house, and a facial droop was noted. She has not had symptoms like this before. She says that her head hurts quite badly. She does not have a history of migraines necessarily. Symptoms have not improved at all. They consist of right-sided facial droop, right upper extremity and lower extremity weakness, some paresthesias, and some mild dysarthria. No vision change. No aphasia. Associated symptoms: Reports headache(s); Deny chest pain or vomiting Review of Systems Const: Denies: fever(s) Eyes: Denies: change in vision or blurry vision ENMT: Denies: throat pain Card: Denies: chest pain Resp: Denies: dyspnea GI: Denies: abdominal pain or vomiting Neuro: Reports: headache(s), numbness in extremities, weakness in extremities, sensory changes, lack of coordination and Slurred speech present; Denies: confusion, behavioral changes or seizure-like activity PFSH ED PFSH: Medical History No pertinent past medical history neghx: htn,dm,thyroid,dvt/pe PCP: Dr. Meade Surgical History History of salpingectomy (~2015) right tube was removed at the time of her . H/O section -2009 2013 2015 H/O tubal ligation (~2015) performed at the same time as her 3rd section H/O unilateral oophorectomy (~09/27/23) LEFT OVARY REMOVED AT TIME OF HYST; right ovary remains H/O: hysterectomy (~09/27/23) JENNYFER, Left-oophorectomy, LINDA-- multiple dense adhesions. Left ovary demonstrated endometrioma; erformed by [facility] for AUB, and Pelvic Pain Family History Mother Ovarian cancer Family/Other Breast cancer Paternal aunt Father Diabetes Denies family history of Cervical cancer Colon cancer Hypertension Uterine cancer Thyroid disease Stroke NIH stroke score NIHSS: Level Of Consciousness - 1a: 0 Level Of Consciousness Questions - 1b: Both Correct Level Of Consciousness Commands - 1c: Both Correct Best Gaze - 2: Normal Visual Almaraz - 3: No Visual Loss Facial Palsy - 4: Minor Paralysis Motor Arm Right - 5: Drift Motor Arm Left - 5: No Drift Motor Leg Right - 6: Effort Against [place] Motor Leg Left - 6: No Drift Limb Ataxia - 7: Present In One Limb Sensory - 8: Mild To Moderate Loss Best Language - 9: No Aphasia Dysarthia - 10: Mild/Moderate Dysarthia Extinction And Inattention - 11: 0 Score: Total Score: 7 Physical Exam Const: COMMON NORMALS: no acute distress GENERAL APPEARANCE: cooperative; not ill appearing and not frail appearing HENMT: COMMON NORMALS: normocephalic, atraumatic and Normal external nose present HEAD & SCALP: normocephalic and atraumatic FACE & SINUS: normal facial exam and face symmetric NOSE: Normal external nose present Eye: COMMON NORMALS: Equal, round and reactive pupils present and EOMs intact bilaterally PUPIL: Yes Equal, round and reactive pupils present Neck/C-Spine: GENERAL: Yes trachea midline Chest: CHEST: Yes Symmetrical chest wall rise Resp: COMMON NORMALS: normal respiratory effort, No retractions, No use of accessory muscles and clear to auscultation bilaterally AUSCULTATION: clear to auscultation bilaterally Cardio: COMMON NORMALS: regular rate and regular rhythm RATE: regular rate RHYTHM: regular rhythm GI: COMMON NORMALS: Normal to inspection, nondistended, normoactive bowel sounds present Extremity: COMMON NORMALS: no pedal edema Neuro: TRACEE COMA SCALE: document GCS findings [place] coma scale eye opening: Spontaneous Tracee coma scale verbal response: Orientated [place] coma scale motor response: Obey commands Tracee coma scale total score: 15 SENSORY EXAM: Yes extremities (intact) Skin: COMMON NORMALS: no rashes or lesions noted GENERAL SKIN EXAM: no rashes or lesions noted Course Vital Signs: Vital signs: Vital Signs Temperature 97.8 F 01/28/24 14:46 Pulse Rate 86 01/28/24 14:46 Respiratory Rate 18 01/28/24 14:46 Blood Pressure 116/74 01/28/24 14:46 Pulse Oximetry 100 05/18/24 14:46 Oxygen Delivery Me thod Room Air 01/28/24 14:46 MDM - Neuro Symptoms/Deficit Medical Decision Making This patient, given she presented within a couple of hours of onset of symptoms, with significant NIH score, was deemed a candidate for TNKase thrombolytics. I discussed with neurology on-call. She agrees as well this patient is a good candidate. She also agrees to see the patient in the morning in consultation. Risks and potential benefits were discussed with the patient including chances of hemorrhage. She agreed to take the medication. Medication infusion was started after final read from radiology came back with no hemorrhage on head CT. CT angio of the head and neck are also negative for stenosis, occlusion, or dissection. Blood pressure on start of infusion of medication was 135/89. she will go to icu. hospitalist is seeing the patient in the er. Lab Data 01/28/24 00:16 01/28/24 00:16 Radiology Impressions Head/Neck CTA 01/28/24 00:13 IMPRESSION: No large vessel stenosis or occlusion. IMPRESSION: No stenosis or occlusion. REFERENCES: NASCET CRITERIA. The degree of stenosis in the cervical segment of the internal carotid artery is based on NASCET criteria. Normal is no stenosis. Mild is less than 50% stenosis. Moderate is 50-69% stenosis. Severe is 70% to 99% stenosis. Total occlusion is no detectable patent lumen. Head CT 01/28/24 04:59 assessment IMPRESSION: No acute intracranial abnormality. Head MRI 01/28/24 09:57 IMPRESSION: 1. Small focus of abnormal T2 signal in the left periventricular white matter, suspicious for demyelinating disease, e.g. multiple sclerosis. 2. No evidence of acute infarct. Laboratory Results WBC 11.98 10^3/uL (3.29-11.43) H 01/28/24 00:16 RBC 5.73 10^6/uL (3.85-5.65) H 01/28/24 00:16 Hgb 13.10 g/dL (11.27-16.99) 01/28/24 00:16 Hct 40.4 % (36-47) 01/28/24 00:16 MCV 70.5 fl (85-98) L 01/28/24 00:16 MCH 22.9 pg (27-33) L 01/28/24 00:16 MCHC 32.4 g/dL (30-55) 01/28/24 00:16 RDW 23.2 % (12.1-15.1) H 01/28/24 00:16 Plt Count 379 10^3/cmm (157-399) 01/28/24 00:16 MPV 10.6 fL (7.4-10.4) H 01/28/24 00:16 Neut % (Auto) 62.8 % 01/28/24 00:16 Lymph % (Auto) 23.5 % 01/28/24 00:16 Dillon % (Auto) 9.7 % 01/28/24 00:16 Eos % (Auto) 2.8 % 01/28/24 00:16 Baso % (Auto) 0.9 % 01/28/24 00:16 Neut # (Auto) 7.53 10^3/uL (1.8-7.7) 01/28/24 00:16 Lymph # (Auto) 2.8 10^3/uL (0.8-4.8) 01/28/24 00:16 Dillon # (Auto) 1.2 10^3/uL (0.2-0.9) H 01/28/24 00:16 Eos # (Auto) 0.3 10^3/uL (0.0-0.8) 01/28/24 00:16 Baso # (Auto) 0.1 10^3/uL (0.0-0.1) 01/28/24 00:16 Nucleated RBC % (auto) 0 % 01/28/24 00:16 Nucleated RBCs # 0.0 /100WBC 01/28/24 00:16 PT 12.60 SECONDS (12.1-14.9) 01/28/24 00:16 INR 0.92 (0.8-1.2) 01/28/24 00:16 APTT 28.3 SECONDS (23.9-36.7) 01/28/24 00:16 Sodium 135 mmol/L (136-145) L 01/28/24 00:16 Potassium 3.2 mmol/L (3.5-5.1) L 01/28/24 00:16 Chloride 100 mmol/L (98-107) 01/28/24 00:16 Carbon Dioxide 21 mmol/L (22-29) L 01/28/24 00:16 Anion Gap 17.2 (5-19) 01/28/24 00:16 BUN 12 mg/dL (6-20) 01/28/24 00:16 Creatinine 0.8 mg/dL (0.5-0.9) 01/28/24 00:16 GFR Calculation 83.1 mL/min (90-130) L 01/28/24 00:16 Glucose 146 mg/dL (65-115) H 01/28/24 00:16 POC Glucose 118 mg/dL (70-110) H 01/28/24 00:36 Estimat Average Glucose 94 01/28/24 01:16 Hemoglobin A1c 4.9 % (4.0-6.0) 01/28/24 01:16 Calculated Osmolality 282 mOsm/kg (285-295) L 01/28/24 00:16 Calcium 9.3 mg/dL (8.5-10.5) 01/28/24 00:16 Total Bilirubin 0.2 mg/dL (0.15-1.2) 01/28/24 00:16 AST 21 U/L (0-32) 01/28/24 00:16 ALT 17 U/L (0-33) 01/28/24 00:16 Alkaline Phosphatase 77 U/L (35-105) 01/28/24 00:16 Total Protein 7.8 g/dL (6.6-8.7) 01/28/24 00:16 Albumin 4.4 g/dL (3.5-5.2) 01/28/24 00:16 Globulin 3.4 g/dL (1.3-4.6) 01/28/24 00:16 Triglycerides 52 mg/dL (0-150) 01/28/24 01:16 Cholesterol 199 mg/dL (0-200) 01/28/24 01:16 LDL Cholesterol, Calc 118 mg/dL (50-129) 01/28/24 01:16 HDL Cholesterol 71 mg/dL (60-100) 01/28/24 01:16 LDL/HDL Ratio 1.66 RATIO (0.00-3.22) 01/28/24 01:16 Cholesterol/HDL Ratio 2.80 mg/dL (0.0-4.40) 01/28/24 01:16 TSH 1.54 uIU/mL (0.27-4.20) 01/28/24 01:16 Urine Color Yellow (Yellow) 01/28/24 01:28 Urine Appearance Clear (CLEAR) 01/28/24 01:28 Urine pH 6.5 (5-7) 01/28/24 01:28 Ur Specific [place] 1.010 (1.005-1.030) 01/28/24 01:28 Urine Protein 1+ (Negative) H 01/28/24 01:28 Urine Glucose (UA) Norm (Normal) 01/28/24 01:28 Urine Ketones Negative (Negative) 01/28/24 01: Urine Blood Neg (Negative) 01/28/24 01: Urine Nitrate Positive (Negative) H 01/28/24 01:28 Urine Bilirubin Neg (Negative) 01/28/24 01: Urine Urobilinogen Neg mg/dL (Negative) 01/28/24 01:28 Ur Leukocyte Esterase Negative (Negative) 01/28/24 01:28 Urine RBC 0-4 /hpf (0-2) H 01/28/24 01:28 Urine WBC 5-10 /hpf (0-5) H 01/28/24 01:28 Ur Squamous Epith Cells 0-4 /hpf (0-5) H 01/28/24 01:28 Amorphous Sediment Trace /hpf 01/28/24 01:28 Urine Bacteria 2+ /hpf (NONE) H 01/28/24 01:28 Urine Mucus 1+ /hpf 01/28/24 01:28 Urine Opiates Screen Positive ng/mL (Negative) H 01/28/24 01:28 Ur Barbiturates Screen Negative ng/mL (Negative) 01/28/24 01:28 Ur Phencyclidine Scrn Negative ng/mL (Negative) 01/28/24 01:28 Ur Amphetamines Screen Negative ng/mL (Negative) 01/28/24 01:28 U Benzodiazepines Scrn Negative ng/mL (Negative) 01/28/24 01:28 Urine Cocaine Screen Negative ng/mL (Negative) 01/28/24 01:28 U Marijuana (THC) Screen Negative ng/mL (Negative) 01/28/24 01:28 All radiology interpretation(s) finalized by discharge Critical Care Time Critical Care Time: Critical Care Time: Yes Total Critical Care Time: 35 Attestation: This case had a high probability of a clinically significant, sudden, or life threatening deterioration of this patient's condition which required my full and direct attention, intervention and personal management. Time is independent of any procedures performed. Discharge Plan Discharge Patient Disposition: Admitted As Inpatient Admit Provider: Aj Gutierrez Clinical Impression: Cerebrovascular accident Condition: Stable Coding Level of Care Code ED H[employer]head Packer for Epifanio Glover
[2024-01-28] MEDS: morphine 4 mg/mL SDV 1 mL IVP (01:11)
[2024-01-28] MEDS: metoclopramide 5 mg/mL SDV 2 mL 10 MG IVP (01:12)
[2024-01-28 01:41] LABS: Amphetamines Screen Urine Negative (Negative); Barbiturates Screen Urine Negative (Negative); Benzodiazepines Screen Urine Negative (Negative); Cocaine Screen Urine Negative (Negative); Opiate Screen Urine Positive (Negative); PCP Screen Urine Negative (Negative); THC Screen Urine Negative (Negative); Urine Appearance Clear (CLEAR); Urine Color Yellow (Yellow); pH Urine 6.5 (5-7)
[2024-01-28 01:42] LABS: Add Urine Microscopic? YES; Amorphous Sediment Urine TRACE /hpf; Bacteria Urine 2+ /hpf; Bilirubin Urine Neg (Negative); Blood Urine Neg (Negative); Glucose Urine UA Norm (Normal); Ketones Urine Negative (Negative); Leukocyte Esterase Urine Negative (Negative); Mucus Urine 1+ /hpf; Nitrate Urine Positive (Negative); Protein Urine 1+ (Negative); RBC Urine 0-4 /hpf (0-2); Squamous Epithelial Cell Urine 0-4 /hpf (0-5); Urobilinogen Urine Neg (Negative)
[2024-01-28 01:43] LABS: Add Urine Culture? Yes
--- NOTE | 2024-01-28 02:12 | USCV_ITS ---
Madisyn Poe Age: 33 Gender: F : 1990 Exam Date: 01/28/2024 15:44 Ordering Phys: Aj Gutierrez MD Technologist: Marco Pacheco Exam Location: [facility] [place] Indication: cva BP: 105 / 67 HR: 76 Rhythm: Sinus Technical Quality: Adequate MEASUREMENTS (Male / Female) Normal Values 2D ECHO LV Diastolic Diameter PLAX 4.3 cm 4.2 - 5.9 / 3.9 - 5.3 cm IVS Diastolic Thickness 1.0 cm 0.6 - 1.0 / 0.6 - 0.9 cm IVS Systolic Thickness 1.2 cm LVPW Diastolic Thickness 0.9 cm 0.6 - 1.0 / 0.6 - 0.9 cm LVPW Systolic Thickness 1.3 cm LV Ejection Fraction 2D Teich 60.8 % LV Ejection Fraction MOD 2C 67.2 % LV Ejection Fraction 2C AL 67.3 % LA Diameter 3.1 cm RA Systolic Volume 4C AL 20.4 ml RA Systolic Volume 4C MOD 20.6 ml LA Sys Volume AL 21.1 cm cubed LA Sys Volume Index AL 14.8 cm cubed/m squared Aorta at Sinotubular Diameter 2.0 cm IVC Diameter 1.4 cm M-MODE LA Ao Ratio MM 1.3 AV Cusp Separation MM 1.4 cm DOPPLER AV Peak Velocity 129.0 cm/s LVOT Peak Velocity 91.0 cm/s MV Peak Velocity 124.0 cm/s MV Area PHT 5.7 cm squared Mitral E to A Ratio 1.3 TV Peak Velocity 225.3 cm/s TR Peak Velocity 294.0 cm/s TR Peak Gradient 34.6 mmHg TR Mean Velocity 229.0 cm/s TR Mean Gradient 23.2 mmHg TR Velocity Time Integral 63.4 cm PV Peak Velocity 110.7 cm/s RV Ejection Time 0.3 s FINDINGS Left Ventricle Normal left ventricular size, systolic function and wall thickness, with no regional wall motion abnormalities. Left ventricular ejection fraction is estimated at 68 %. Right Ventricle Normal right ventricular size and systolic function. Right Atrium Normal right atrial size. Left Atrium Normal left atrial size. Mitral Valve Structurally normal mitral valve. Aortic Valve Structurally normal aortic valve. Tricuspid Valve Structurally normal tricuspid valve. Pulmonic Valve Pulmonic valve not well visualized. Pericardium No pericardial effusion. Aorta Normal size aortic root and proximal ascending aorta. IVC Normal inferior vena cava. CONCLUSIONS Normal left ventricular systolic function. Estimated LVEF normal 65%. Normal chamber sizes No significant valvular abnormality noted Normal right heart and pulmonary pressures. Cheo Lopez MD (Electronically Signed) Final Date: 29 Jan 2024 15:06 S
--- NOTE | 2024-01-28 02:12 | USR_ITS ---
PROCEDURE INFORMATION: Exam: US Duplex Lower Extremity Veins, Bilateral Exam date and time: 01/28/2024 3:03 PM Age: 33 years old Clinical indication: Pain; Leg, lower; Bilateral; Additional info: Dvt TECHNIQUE: Imaging protocol: Real-time duplex ultrasound of the bilateral extremities with 2-D chinchilla scale, color Doppler flow and spectral waveform analysis including responses to compression and other maneuvers (when performed) with image documentation. Complete exam focused on the lower extremity veins. COMPARISON: US transvaginal [id number] 06/27/2023 1:35 PM FINDINGS: Right deep veins: Unremarkable. The common femoral, femoral, proximal profunda femoral and popliteal veins are patent without thrombus. Normal Doppler waveforms. Normal compressibility and/or augmentation response. Left deep veins: Unremarkable. The common femoral, femoral, proximal profunda femoral and popliteal veins are patent without thrombus. Normal Doppler waveforms. Normal compressibility and/or augmentation response. Superficial veins: Greater saphenous veins at the saphenofemoral junctions are patent bilaterally without thrombus. Soft tissues: Unremarkable. US/CV venous duplex [facility] [id number] IMPRESSION: No evidence of deep vein thrombosis.
--- NOTE | 2024-01-28 02:13 | PM.HP ---
Providers/Chief Complaint Admitting Physician: Aj Gutierrez MD Chief Complaint: Stroke alert History of Present Illness Madisyn Poe is a 33 year old female with a past medical history of a breast lump, currently plans for surgical removal, history of hysterectomy, G2, P2, hypertension, smoker, who presents to [facility] due to right-sided weakness, slurring of her words. Currently patient is alert to person, to place, to time, she can follow commands, she continues to have right hemiplegia, right facial droop, no slurring of words no visual deficits,. According to patient, she did a quick trip to [place] to check about a family member, she drove, she recently returned Tuesday morning, denies any calf pain no calf swelling, no shortness of breath no hemoptysis, at about 1041, she was driving her car home, when she was feeling strange, she was feeling weak on her right side, she mated to her friend's house, in which they noticed that she had facial droop, slurring of words, she was complaining of a headache at that time, denies a history of migraines, on arrival she had right-sided facial droop right upper and right lower EXTR and weakness, paresthesia some mild dysarthria no aphasia, her NIH stroke scale was 7, initial head CT no acute bleed, received tPA, CTA after tPA no acute findings, currently her right upper extremity strength is diminished compared to the left, 3 out of 5 compared to 5 out of 5 on the left, she does have a right facial droop mild to moderate, no slurring of words no word finding difficulty, but she does have significant right lower extremity weakness, strength 1 out of 5, compared to 5 out of 5 on the left, significantly diminished plantar and dorsiflexion, eversion and inversion, of her foot, denies any visual deficits Review of Systems Const: Denies: fever(s) Card: Denies: chest pain Resp: Denies: dyspnea : Denies: flank pain or difficulty voiding Medications/Allergies Home Medications Medication Instructions Recorded Confirmed Last Taken Type acetaminophen 325 mg capsule 325 mg PO Q4H PRN fever or pain 09/29/23 12/28/23 Unknown Rx #60 caps ferrous sulfate 325 mg (65 mg 325 mg PO BID #60 tabs 09/29/23 12/28/23 Unknown Rx iron) tablet (Iron (ferrous sulfate)) ibuprofen 800 mg tablet 800 mg PO TID PRN pain #60 tabs 09/29/23 12/28/23 Unknown Rx methylphenidate HCl 27 mg 27 mg PO QAM 12/28/23 12/28/23 12/28/23 History tablet,extended release 24 hr ondansetron HCl 4 mg tablet 4 mg PO Q6H PRN Nausea 12/28/23 12/28/23 Unknown History Allergies Allergy/AdvReac Type Severity Reaction Status Date / Time cefaclor [From Ceclor] Allergy ALGY-Rash Verified 12/16/23 08:37 PFSH Acute PFSH: Medical History No pertinent past medical history neghx: htn,dm,thyroid,dvt/pe PCP: Dr. Meade Surgical History History of salpingectomy (~2015) right tube was removed at the time of her . H/O section -2009 2013 2015 H/O tubal ligation (~2015) performed at the same time as her 3rd section H/O unilateral oophorectomy (~09/27/23) LEFT OVARY REMOVED AT TIME OF HYST; right ovary remains H/O: hysterectomy (~09/27/23) JENNYFER, Left-oophorectomy, LINDA-- multiple dense adhesions. Left ovary demonstrated endometrioma; erformed by Francisco [facility] for AUB, and Pelvic Pain Family History Mother Ovarian cancer Family/Other Breast cancer Paternal aunt Father Diabetes Denies family history of Cervical cancer Colon cancer Hypertension Uterine cancer Thyroid disease Stroke Vitals/I&O/Wt Last Vital Signs Temp 98.3 F 01/28/24 00:31 Pulse 69 01/28/24 02:02 Resp 16 01/28/24 02:02 BP 118/77 01/28/24 02:02 Pulse Ox 98 01/28/24 02:02 O2 Del Method Room Air 01/28/24 00:25 Weight last 48 hrs Weight 49.895 kg Physical Exam Const: COMMON NORMALS: no acute distress and patient oriented x3 HENMT: COMMON NORMALS: normocephalic HEAD & SCALP: normocephalic Neck/C-Spine: COMMON NORMALS: no JVD Resp: COMMON NORMALS: normal respiratory effort, No retractions, No use of accessory muscles and clear to auscultation bilaterally AUSCULTATION: clear to auscultation bilaterally Cardio: COMMON NORMALS: no JVD, regular rate, regular rhythm, S1 normal heart sound present and S2 normal heart sound present RATE: regular rate RHYTHM: regular rhythm HEART SOUNDS: S1 normal heart sound present and S2 normal heart sound present GI: COMMON NORMALS: Normal to inspection, nondistended, normoactive bowel sounds present, Soft to palpation and non-tender Extremity: COMMON NORMALS: no pedal edema Neuro: COMMON NORMALS: patient oriented x3 OTHER: Right facial droop, right upper and right lower extremity weakness, findings as above, NIH stroke scale 7, right facial droop, pupils equal round reactive to light, no saccadic eye movements, no word finding difficulty, no slurring of words Psych: COMMON NORMALS: mental status grossly normal Data 01/28/24 00:16 01/28/24 00:16 A&P Assessment and plan (1) Acute CVA (cerebrovascular accident): (2) tPA adm status 24 hr [employer]: Plan Acute CVA ? Right-sided weakness, right-sided facial droop, word finding difficulty, NIH stroke scale 7, initial head CT no acute bleed, status post TNKase, CTA head and neck no large vessel occlusion ? Plan ? Monitor in the ICU closely ? Monitor fibrinogen, monitor for hemorrhagic conversion ? Neurochecks, aspiration precautions, night stroke scale, monitor neurologic status closely ? Status post TNKase precautions ? Start aspirin tomorrow ? Start Lovenox for DVT show prophylaxis tomorrow ? Repeat head CT in 24 hours ? A1c, lipid panel ? Smoking cessation counseling next ?speech therapy eval nurse dysphagia eval ? PT OT ? Has evidence of UTI start Augmentin ? Given her recent history of car travel over 10 hours, roundtrip, will do venous ultrasound to eval for DVT, cardiac echo with bubble study to evaluate for septal defect or PFO ? I have ordered a hypercoagulability panel, including factor V, prothrombin gene mutation, Antithrombin, NT cardiolipin, protein C and S, ? Full code ? SCDs for DVT prophylaxis Attestations Medical Necessity Statement*: Patient requires hospitalization, inpatient, greater than 2 minutes, for acute CVA status post tPA, requiring ICU level monitoring, right-sided weakness, hemiplegia, right-sided facial droop Coding Level of Care Code Critical Care >/= 30 minutes Critical care time (in minutes): 45 The high probability of a clinically significant, sudden or life threatening deterioration, as referenced in this documentation, required my full and direct attention, intervention and personal management. The critical care time shown is in addition to time spent performing any reported separately billable procedures and includes the following: [x] Data and vital sign review and interpretation [x] Patient assessment, examination and intervention [x] Medication orders and management [x] Patient/Family updates as able [x] Care Coordination and Documentation. Diagnoses Acute CVA (cerebrovascular accident) I63.9 tPA adm status 24 hr [employer] Z92.82
[2024-01-28] MEDS: sodium chloride 0.9% 1,000 ML 100 ML IV ×3 (03:11→22:49)
[2024-01-28] MEDS: pantoprazole 40 mg SDV IVP (03:11)
[2024-01-28 03:15] LABS: Estmated Average Glucose 94; Hemoglobin A1C 4.9 % (4.0-6.0)
[2024-01-28 03:18] LABS: Cholesterol 199 mg/dL (0-200); HDL Cholesterol 71 mg/dL (60-100); LDL Cholesterol Calculated 118 mg/dL (50-129); LDL HDL Ratio 1.66 RATIO (0.00-3.22); Thyroid Stimulating Hormone 1.54 uIU/mL (0.27-4.20); Triglycerides 52 mg/dL (0-150)
[2024-01-28] MEDS: acetaminophen 325 mg Tablet 650 MG PO ×3 (04:20→19:51)
--- NOTE | 2024-01-28 04:36 | PC.NURSE ---
Headache: Patient complained of a new onset headache 8/10 pain, no new neuro changes, BP WNL. Dr. Gutierrez was contacted and gave telephone orders to give ordered tylenol and continue to monitor.
--- NOTE | 2024-01-28 04:59 | CTR_ITS ---
PROCEDURE INFORMATION: Exam: CT Head Without Contrast Exam date and time: 01/28/2024 5:17 AM Age: 33 years old Clinical indication: Pain; Weakness, extremity; Headache; Patient HX: C/O MARTINEZ with new onset of left lower ext weakness. Patient administered tnkase for stroke symptoms in er earlier this a. M. ; Additional info: Change in neuro TECHNIQUE: Imaging protocol: Computed tomography of the head without contrast. Radiation optimization: All CT scans at this facility use at least one of these dose optimization techniques: automated exposure control; mA and/or kV adjustment per patient size (includes targeted exams where dose is matched to clinical indication); or iterative reconstruction. COMPARISON: CT angio headneck* [id number] 01/28/2024 12:16 AM RADIATION DOSE METRICS: Total DLP (mGy-cm): 283 FINDINGS: Brain: No focal hemorrhage or midline shift is identified. Cerebral ventricles: No ventriculomegaly or evidence of acute hydrocephalus. Paranasal sinuses: The partially assessed sinuses are grossly clear. Mastoid air cells: Visualized mastoid air cells are well aerated. Bones: Unremarkable. No acute fracture. Soft tissues: Unremarkable. CT/CT head wo con* [id number] assessment IMPRESSION: No acute intracranial abnormality.
--- NOTE | 2024-01-28 05:35 | PC.NURSE ---
Head CT: Patient was experiencing new onset weakness in the left leg. Dr. Gutierrez was contacted and gave telephone orders for a head CT with no contrast. Patient's neuro assessment remained the same otherwise.
[2024-01-28 06:53] LABS: Fibrinogen 362 mg/dL (174-498)
[2024-01-28] MEDS: amoxicillin-clav 875-125 mg Tablet 1 TAB PO ×2 (09:00→17:11)
--- NOTE | 2024-01-28 09:45 | PC.NURSE ---
Education provided to patient and family on stroke protocol, neuro checks, and tenecteplase. Including fall risk, bleeding risk, follow up MRI. Possibility of physical therapy, possibility of swallow reflex effected. Patient and family verbalizes understanding.
--- NOTE | 2024-01-28 09:57 | MRR_ITS ---
PROCEDURE INFORMATION: Exam: MR Head Without Contrast Exam date and time: 01/28/2024 11:22 AM Age: 33 years old Clinical indication: Weakness, extremity; Right; Additional info: Stroke TECHNIQUE: Imaging protocol: Magnetic resonance imaging of the head without contrast. COMPARISON: CT head wo con* [id number] 01/28/2024 5:17 AM FINDINGS: Brain: No acute intracranial hemorrhage or restricted diffusion is identified. No pathologic intracranial enhancement is seen. No dural sinus thrombosis. No Chiari malformation. No abnormal mass effect. There is a small region of T2 hyperintense signal in the left periventricular white matter adjacent to the roof of the posterior body of the left lateral ventricle (series 401, images 18-19). Cerebral ventricles: See Brain finding. Bones: Unremarkable. Paranasal sinuses: No acute sinusitis. Mastoid air cells: Small bilateral mastoid effusions. Orbital cavities: No suspicious mass identified. Exam not tailored for optic nerve assessment. Soft tissues: No obvious acute abnormality. MR/MR head wo/w con [id number] IMPRESSION: 1. Small focus of abnormal T2 signal in the left periventricular white matter, suspicious for demyelinating disease, e.g. multiple sclerosis. 2. No evidence of acute infarct.
--- NOTE | 2024-01-28 11:42 | PC.OT ---
Attempted OT evaluation and pt is unavailable due to being at MRI; will attempt again at a later time.
--- NOTE | 2024-01-28 12:19 | PC.NURSE ---
Patient in MRI at next neuro check, Dr. Tinsley with patient at the time of return from MRI.
--- NOTE | 2024-01-28 12:51 | P.CONIM_ITS ---
Providers/Reason For Consult 2 Consulting Physician/Specialty*: Dr. Goel Reason for Consult*: acute stroke Requesting Physician: Dr. Goel Attending Physician: Diego Cheung MD History of Present Illness History of Present Illness I was called stat for stroke team at midnight for this 33-year-old woman with acute onset of right-sided weakness, leg greater than arm. Dr. Goel evaluated her as soon as she arrived and found a stroke scale score of 7 because of significant right leg and right arm weakness and right-sided numbness. Her symptoms began suddenly while she was driving back from [place]. Her family tried to get her to the car to bring her in but she could not bear weight on the right leg, collapsed and EMS was called. Stroke alert was activated as soon as she arrived and I called the emergency department immediately. Dr. Goel called me back. The patient had a hysterectomy in September but her blood pressure was controlled, her blood sugar was unremarkable and she had no contraindications to thrombolytic therapy. She received TNK but I cannot find the time documented. The patient thinks it was around 1 in the morning which would be 1 hour after arrival. She arrived at 0009. This morning she is still feeling weak on the right side and she does not believe she could bear weight on the right leg. She had a similar episode 1 month ago. 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 she felt weird. She was seen in ER and diagnosed with hyperventilation syndrome. Her labs were normal. She has experienced horizontal diplopia on several occasions. She cannot remember much about those. Review of Systems 2 Const: Reports: fatigue, malaise and change in sleep pattern Eyes: Reports: change in vision (diplopia); Denies: blind spots ENMT: Denies: change in hearing or disequilibrium Card: Reports: palpitations, irregular heart rhythm, lightheadedness and dyspnea on exertion Resp: Reports: dyspnea GI: Reports: abdominal pain : Denies: difficulty voiding Musc: Denies: neck pain or back pain Skin/Breast: Denies: rash Neuro: Reports: headache(s), numbness in extremities, weakness in extremities, sensory changes, difficulty walking, frequent falls and Slurred speech present (yesterday not now); Denies: dizziness, confusion or behavioral changes Psych: Denies: anxiety or depression Endo: Denies: polyuria Medications/Allergies Home Medications Medication Instructions Recorded Confirmed Last Taken Type acetaminophen 325 mg capsule 325 mg PO Q4H PRN fever or pain 09/29/23 01/28/24 Unknown Rx #60 caps ibuprofen 800 mg tablet 800 mg PO TID PRN pain #60 tabs 09/29/23 01/28/24 Unknown Rx methylphenidate HCl 27 mg 27 mg PO QAM 12/28/23 01/28/24 12/28/23 History tablet,extended release 24 hr Allergies Allergy/AdvReac Type Severity Reaction Status Date / Time cefaclor [From [facility]] Allergy ALGY-Rash Verified 12/16/23 08:37 Current Medications Generic Name Dose Route Start Last Admin Trade Name Freq PRN Reason Stop Dose Admin Acetaminophen 650 mg 01/28/24 02:44 01/28/24 10:49 Acetaminophen 325 Mg Tablet PO 650 mg Q6H PRN Administration Mild/Mod Pain Or Temp >/= 101 Amoxicillin/Clavulanate Potassium 1 tab 01/28/24 09:00 01/28/24 09:00 Amoxicillin-Clav 875-125 Mg Tablet PO 1 tab BID MARIBEL Administration Protocol Sodium Chloride 1,000 mls @ 100 mls/hr 01/28/24 02:44 01/28/24 03:11 Sodium Chloride 0.9% IV 100 mls/hr .Q10H MARIBEL Administration Pantoprazole Sodium 40 mg 01/28/24 02:44 01/28/24 03:11 Pantoprazole 40 Mg Sdv IVP 40 mg Q24H MARIBEL Administration PFSH Acute 2 PFSH: Medical History No pertinent past medical history neghx: htn,dm,thyroid,dvt/pe PCP: Dr. Meade Surgical History History of salpingectomy (~2015) right tube was removed at the time of her . H/O section -2009 2013 2015 H/O tubal ligation (~2015) performed at the same time as her 3rd section H/O unilateral oophorectomy (~09/27/23) LEFT OVARY REMOVED AT TIME OF HYST; right ovary remains H/O: hysterectomy (~09/27/23) JENNYFER, Left-oophorectomy, LINDA-- multiple dense adhesions. Left ovary demonstrated endometrioma; erformed by Francisco SCHULTZ for AUB, and Pelvic Pain Family History Mother Ovarian cancer Family/Other Breast cancer Paternal aunt Father Diabetes Denies family history of Cervical cancer Colon cancer Hypertension Uterine cancer Thyroid disease Stroke Vitals/I&O/Wt Last Vital Signs Temp 98.7 F 01/28/24 10:52 Pulse 88 01/28/24 12:30 Resp 16 01/28/24 12:30 BP 135/86 01/28/24 12:30 Pulse Ox 100 01/28/24 11:00 O2 Del Method Room Air 01/28/24 11:00 01/27/24 01/28/24 01/28/24 22:59 06:59 14:59 Intake Total 25 / 25 240 / 240 Balance 25 / 25 240 / 240 Weight last 48 hrs Weight 104 lb 7 oz Weight 104 lb 7 oz Weight 110 lb Physical Exam 2 Narrative: GENERAL: Healthy young woman in ICU bed MENTAL STATUS: Orientation was full to 10 of 10 questions of orientation. Speech was fluent without word hesitation. No difficulty following a complex command. The affect was euthymic. No dysarthria. CRANIAL NERVES: Visual acuity was intact to reading small print. Visual galvez were full to confrontation, direct and consensual. Extraocular movements were full without nystagmus. Both slow pursuit and saccadic eye movements were normal. PERRLA. Face was symmetric at rest and with grimace. Facial sensation was intact in all three distributions of the fifth cranial nerve bilaterally to touch. Hearing was intact to soft spoken voice. Tongue and palate were midline at rest and with protrusion of the tongue and elevation of the palate. Shoulders were symmetric at rest and with shoulder shrug. MOTOR: She cannot lift the right leg from the bed. fine movements are slow in the right hand SENSATION: All modalities reduced in the right foot and leg. proprioception significantly impaired. COORDINATION: She is too weak to perform [id number] on the right. Rapid alternating movements slow in the right hand. No specific cerebellar signs. DEEP TENDON REFLEXES: No clonus. Toes downgoing. GAIT: I do not think she could bear weight and I did not get her out of the bed HEENT: Normocephalic without dysmorphic features. Conjunctivae were not injected and sclerae were nonicteric. NECK: Carotid upstroke was strong bilaterally without bruits. The thyroid was not enlarged and there were no palpable lymph nodes. CHEST: Clear to auscultation. CARDIOVASCULAR: The heart sounds were normal without murmur or gallop. Regular rate and rhythm. EXTREMITIES: There was no edema or cyanosis. The skin was unremarkable. The spine exhibited normal thoracic kyphosis and normal lumbar lordosis without deformities. Data 01/28/24 00:16 01/28/24 00:16 Micro: Microbiology 01/28/24 01:28 Urine Culture - Preliminary Urine,Clean Catch Gram Negative Rods Other data: Her MRI brain shows a demyelinating lesion at the posterior aspect of the lateral ventricle on the left that is present on 2 cuts. There is scant gadolinium uptake. There may be a second T2 lesion, very small, left subcortical. Brainstem unremarkable. Diffusion-weighted imaging negative. 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 Goel and I agreed that the right thing to do was to administer TNK for ischemic stroke. For multiple reasons we agreed she should have a MRI performed first thing this morning and that study shows an inflammatory appearing lesion adjacent to the posterior horn of the lateral ventricle. She does not have any other lesions. She has had intermittent diplopia but not well-defined. She had 1 other episode of right- sided sensory abnormality a month ago and it looks like on both occasions she was hyperventilating (her labs last night are consistent with hyperventilation). She is significantly weak on the right side and the appropriate treatment at this point is 1 g of Solu-Medrol daily for 5 days. I took an extensive amount of time to review her MRI findings with the patient, her mother and her brother and to answer questions. They were particularly concerned about the episode a month ago and whether addressing that differently would have prevented this. I think the diagnosis is still not fully developed. I recommend a spinal tap tomorrow and an MRI of the cervical and thoracic spine with and without contrast as an outpatient after presumed discharge tomorrow. She will need to be in physical and Occupational Therapy. I asked her to start taking vitamin D 2000 units daily. I asked her to stop smoking. I talked with her about Chantix. I asked her to stop smoking because of its adverse effect on multiple sclerosis. I talked with her about multiple sclerosis treatment and reviewed current options. I suggested that if her spinal fluid shows signs of inflammation we might consider treating her clinically isolated syndrome. 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
--- NOTE | 2024-01-28 13:12 | P.PN_ITS ---
Vitals/I&O/Wt Last Vital Signs Temp 98.8 F 01/28/24 12:59 Pulse 82 01/28/24 12:59 Resp 18 01/28/24 12:59 BP 135/86 01/28/24 12:59 Pulse Ox 99 01/28/24 12:59 O2 Del Method Room Air 01/28/24 12:59 01/27/24 01/28/24 01/28/24 22:59 06:59 14:59 Intake Total 1215 / 1215 Balance 1215 / 1215 Weight last 48 hrs Weight 47.372 kg Weight 47.372 kg Weight 49.895 kg Data 01/28/24 00:16 01/28/24 00:16 Micro: Microbiology 01/28/24 01:28 Urine Culture - Preliminary Urine,Clean Catch Gram Negative Rods A&P Assessment and plan (1) Cerebrovascular accident: Post tenecteplase overnight. Gives history of similar complaint back in December [address]23. Appreciate CT head and CTA head and results. Appreciate A1c, lipid panel. No personal history of CVA or CAD. Family history of CAD. Monitor blood pressures. Goal blood pressure less than 140/90 mmHg. Aspirin [address] head in 24 hours post tenecteplase. Frequent neurochecks as per protocol. Counseling for smoking cessation. Plan for echocardiogram with bubble study to rule out PFO. Lower limb Dopplers also ordered. Given young age multiple blood work for hypercoagulability including antiphospholipid, factor Leiden, prothrombin gene mutation, protein C&S study have been sent out. Check PRATEEK panel. Check MRI with and without contrast. Appreciate neurology recommendations. 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 Patient will need an MRI spine. Will also need a lumbar puncture. Will have to hold off on lumbar puncture for 24 hours post tenecteplase. Appreciate neurology recommendations. Plan for 1 g Solu-Medrol dose. Check HIV, hepatitis panel, PRATEEK panel to rule out SLE, Sjogren, COHEN, Behcet's, RPR. Denies any history of recent vaccinations or runny nose. Plan for respiratory viral panel in a.m. which will be 24 hours post tenecteplase. (4) Demyelinating changes in brain: Plan Urine culture positive for gram-negative rods. Denies any complaints or dysuria. Started overnight on Augmentin. Will add Levaquin 500 milligrams oral daily. Full code Advance diet as per speech evaluation. PT and OT evaluation. SCDs, hold off on medical prophylaxis for 24 hours. 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
[2024-01-28] MEDS: methylPREDNISolone sod succ 1,000 MG in sodium chloride 0.9% 250 ML 258 MG IV (13:37)
[2024-01-28] MEDS: levoFLOXacin 500 mg Tablet PO (14:27)
[2024-01-28 14:29] LABS: Hepatitis A Antibody IgM Non-Reactive (Nonreactive); Hepatitis B Core AB, Total Non-Reactive (Nonreactive); Hepatitis B Surface AB < 3.5 (11.5-1000); Hepatitis B Surface Antigen Non-Reactive (Nonreactive); Hepatitis C Virus Antibody Non-Reactive (Nonreactive)
[2024-01-28 14:30] LABS: HIV 1 & 2 Antibody Non-Reactive (Non-Reactiv); HIV 1 & 2 Antigen Non-Reactive (Non-Reactiv)
[2024-01-28 15:18] LABS: Rapid Plasma Reagin Syphilis Reactive (Nonreactive)
[2024-01-28] MEDS: potassium chloride ER 20 mEq Tablet 40 MEQ PO (16:11)
[2024-01-28] MEDS: trazodone 100 mg Tablet PO (19:50)
--- NOTE | 2024-01-28 23:55 | CTR_ITS ---
PROCEDURE INFORMATION: Exam: CT Head Without Contrast Exam date and time: 01/28/2024 11:44 PM Age: 33 years old Clinical indication: Patient HX: 24 hr f/u tnkase administration. PT still experiencing rle weakness. ; Additional info: Post tnkase, 2350 TECHNIQUE: Imaging protocol: Computed tomography of the head without contrast. Radiation optimization: All CT scans at this facility use at least one of these dose optimization techniques: automated exposure control; mA and/or kV adjustment per patient size (includes targeted exams where dose is matched to clinical indication); or iterative reconstruction. COMPARISON: MR head wo/w con [id number] 01/28/2024 11:22 AM RADIATION DOSE METRICS: Total DLP (mGy-cm): 975.48 FINDINGS: Brain: No focal hemorrhage or midline shift is identified. Cerebral ventricles: No ventriculomegaly or evidence of acute hydrocephalus. Paranasal sinuses: The partially assessed sinuses are grossly clear. Mastoid air cells: Visualized mastoid air cells are well aerated. Bones: Unremarkable. No acute fracture. Soft tissues: Unremarkable. CT/CT head wo con* [id number] IMPRESSION: No hemorrhage or change from same-day MRI.
[2024-01-29] VITALS (15 sets, daily range): BP systolic 87–131; BP diastolic 46–79; PULSE 60–97; RESP 12–24; TEMP 37.1; O2SAT 95–100
[2024-01-29] MEDS: pantoprazole 40 mg SDV IVP (02:00)
[2024-01-29 05:03] LABS: Basophils % 0.1 %; Hematocrit 33.6 % (36-47); Lymphocytes # 0.6 10^3/uL (0.8-4.8); Mean Corpuscular HGB Conc 31.3 g/dL (30-55); Mean Corpuscular Volume 73.5 fl (85-98); Mean Platelet Volume 11.1 fL (7.4-10.4); Monocytes # 0.3 10^3/uL (0.2-0.9); Monocytes % 3.2 %; Neutrophils # 9.68 10^3/uL (1.8-7.7); Neutrophils % 90.3 %; Nucleated Red Blood Cells % 0 %; Platelet Count 286 10^3/cmm (157-399); Red Blood Count 4.57 10^6/uL (3.85-5.65); Red Cell Distribution Width 23.1 % (12.1-15.1); White Blood Count 10.71 10^3/uL (3.29-11.43)
[2024-01-29] MEDS: levoFLOXacin 500 mg Tablet PO (05:22)
[2024-01-29 05:35] LABS: Alanine Aminotransferase 33 U/L (0-33); Albumin Level 3.7 g/dL (3.5-5.2); Alkaline Phosphatase 63 U/L (35-105); Anion Gap 12.4 (5-19); Aspartate Amino Transferase 26 U/L (0-32); Blood Urea Nitrogen 12 mg/dL (6-20); Calcium 7.9 mg/dL (8.5-10.5); Carbon Dioxide 21 mmol/L (22-29); Chloride 108 mmol/L (98-107); Creatinine Clr Calc Pharmacy 101.2112; Globulin 2.3 g/dL (1.3-4.6); Glomerular Filtration Rate 115.9 mL/min (90-130); Glucose 220 mg/dL (65-115); Osmolality Calculated 291 mOsm/kg (285-295); Potassium 4.4 mmol/L (3.5-5.1); Sodium 137 mmol/L (136-145); Total Bilirubin 0.2 mg/dL (0.15-1.2)
[2024-01-29] MEDS: sodium chloride 0.9% 1,000 ML 100 ML IV (08:14)
[2024-01-29] MEDS: methylPREDNISolone sod succ 1,000 MG in sodium chloride 0.9% 250 ML 258 MG IV (08:14)
[2024-01-29] MEDS: amoxicillin-clav 875-125 mg Tablet 1 TAB PO (09:16)
[2024-01-29] MEDS: nicotine 21 mg Patch 1 PATCH TRANSDERMA (09:16)
[2024-01-29] MEDS: acetaminophen 325 mg Tablet 650 MG PO (10:15)
--- NOTE | 2024-01-29 12:58 | PM.MISC ---
Miscellaneous Note Purpose of Documentation: lumbar puncture Note: Date 01/29/2024 Procedure: Lumbar Puncture The patient was prepped and draped in sterile fashion after providing informed consent. The procedure was performed in the left Lateral decubitus position. The Opening pressure was not done after the patient was allowed to relax and the knees were extended. CSF appearance: Clear not xanthochromic or bloody CSF was obtained 10 mL Closing pressure was not done CSF sent for: Cell count Glucose Protein MS profile Routine culture gram stain FTA-ABS IgG synthesis rate Patient instructions included: ___No lifting, bending, stooping, straining, ___Lay down if you get a headache ___Call if the headache is severe or won?t respond to Tylenol and rest.
--- NOTE | 2024-01-29 13:00 | P.PN_ITS ---
Subjective 2 Subjective: She is not feeling any differently. She very much wants to go home. Medications: Medication Review Details: She received 1 g of Solu-Medrol yesterday and another today. Vitals/I&O/Wt Last Vital Signs Temp 98.1 F 01/28/24 20:30 Pulse 70 01/29/24 08:00 Resp 13 01/29/24 08:00 BP 101/49 01/29/24 08:00 Pulse Ox 96 01/29/24 08:00 O2 Del Method Room Air 01/29/24 08:00 01/28/24 01/29/24 01/29/24 22:59 06:59 14:59 Intake Total 1228.334 / 2701.334 1249.667 / 1249.667 Output Total 400 / 400 900 / 1300 Balance 828.334 / 2301.334 -900 / 3304.907 6104.667 / 1249.667 Weight last 48 hrs Weight 109 lb Weight 104 lb 7 oz Weight 104 lb 7 oz Weight 110 lb Physical Exam 2 Narrative: Her examination her examination is unchanged. She still has significant weakness and numbness in the right leg with decreased proprioception. She was able to bear weight and walk with a walker with standby assistance. 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 This treatment was appropriate. Her CT head and CTA were negative. MRI shows a single large demyelinative lesion left posterior horn of the lateral ventricle. She has no other lesions. No gadolinium enhancement. Plan MRI of the cervical and thoracic spine as outpatient. Diagnosis of clinically isolated syndrome was discussed with her in detail and I gave her information to take home and read. She understands that her chance of developing multiple sclerosis is 60 to 80%. Spinal fluid obtained to help determine prognosis. She should see me in my office within 6 weeks and I told her to contact me immediately if she develops new symptoms. Her chance of having a headache from the spinal tap is around 10%. 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
--- NOTE | 2024-01-29 13:18 | P.DS_ITS ---
Discharge Providers Date of Admission: 01/28/24 02:00 Date of Discharge: January 29, 2024 Attending Provider at Admission: jA Gutierrez MD Attending Provider at Discharge: Diego Cheung MD Consults: Neurology: Dr. Tinsley Diagnoses at Discharge Discharge Diagnosis (1) tPA adm status 24 hr [employer]ICE: Status: Acute (2) Demyelinating changes in brain: Status: Acute (3) Monofocal clinically isolated syndrome: Status: Acute Reason for Visit Reason for Visit: Stroke alert Hospital Course Hospital Course Madisyn Poe is a 33 year old female with a past medical history of a breast lump, currently plans for surgical removal, history of hysterectomy, G2, P2, hypertension, smoker, who presents to [facility] due to right- sided weakness, slurring of her words. Currently patient is alert to person, to place, to time, she can follow commands, she continues to have right hemiplegia, right facial droop, no slurring of words no visual deficits,. According to patient, she did a quick trip to [place] to check about a family member, she drove, she recently returned Tuesday morning, denies any calf pain no calf swelling, no shortness of breath no hemoptysis, at about 1041, she was driving her car home, when she was feeling strange, she was feeling weak on her right side, she mated to her friend's house, in which they noticed that she had facial droop, slurring of words, she was complaining of a headache at that time, denies a history of migraines, on arrival she had right-sided facial droop right upper and right lower EXTR and weakness, paresthesia some mild dysarthria no aphasia, her NIH stroke scale was 7, initial head CT no acute bleed, received tPA, CTA after tPA no acute findings, currently her right upper extremity strength is diminished compared to the left, 3 out of 5 compared to 5 out of 5 on the left, she does have a right facial droop mild to moderate, no slurring of words no word finding difficulty, but she does have significant right lower extremity weakness, strength 1 out of 5, compared to 5 out of 5 on the left, significantly diminished plantar and dorsiflexion, eversion and inversion, of her foot, denies any visual deficits Given her presentation on admission there was a concern for acute stroke on admission for which she received TNKase. She was admitted to the ICU for post TNKase monitoring. Given her young age with concerns for stroke multiple blood work including prothrombotic blood work, PRATEEK were sent out. She underwent MRI of the head which was concerning for solitary focal point for demyelinating disease. Neurology was consulted with concerns for multiple sclerosis. 24 hours after TNKase patient underwent lumbar puncture and CSF studies have been sent out. She was started on high-dose Solu-Medrol with concerns for multiple sclerosis. Echocardiogram with bubble study was done but the results are awaited. She has been discharged in hemodynamically stable condition on Solu-Medrol 1 g daily for next 3 days. MRI with and without contrast of cervical, lumbar and thoracic spine has been ordered which will be done as an outpatient. She is to follow-up with a primary care provider within next 1 week and with neurology/Dr. Tinsley within next 6 weeks. Physical Exam Narrative: No acute distress, AO x 3, anxious S1-S2 regular, no murmur, no S3 gallop Normal vesicular breath bilaterally sounds all over lung galvez with no added sounds Abdomen soft nontender with bowel sounds present Neurology: AOx3 without facial deformity, pupils bilaterally equal and reactive, PERRLA. She still has significant weakness and numbness in the right leg with decreased proprioception. She was able to bear weight and walk with a walker with standby assistance. Discharge Data Studies Completed and Pending Completed Studies During Hospitalization Category Date Time Status CT angio headneck* [id number] Stat Cat Scan 01/28/24 00:[address] head wo con* [id number] Routine Cat Scan 01/28/24 23:[address] head wo con* [id number] Stat Cat Scan 01/28/24 00:[address] head wo con* [id number] Stat Cat Scan 01/28/24 04:59 Completed MR head wo/w con [id number] Stat MRI 01/28/24 09:57 [place] [id number] Stat Ultrasound 01/28/24 02:12 Completed Pending at discharge Category Date Time Status Anti-Cardiolipin IgA AB Stat Lab 01/28/24 05:10 Received Antiphospholipid Antibody Dumont Routine Lab 01/28/24 05:10 Received Antithrombin III Activity Routine Lab 01/28/24 05:10 Received CSF Analysis + Cell Count Stat Lab 01/29/24 Received CSF Culture Routine Lab 01/29/24 Received Cyto Order Verification Routine Lab 01/29/24 Received FTA [Treponema pallidum Ab] Routine Lab 01/28/24 15:32 Received FTA [Treponema pallidum Ab] Routine Lab 01/29/24 Received Factor 5 Leiden Mutation Stat Lab 01/28/24 05:10 Received Glucose CSF Routine Lab 01/29/24 Received IgG Synthesis Rate Index CSF Routine Lab 01/29/24 Received Lupus Inhibitor Panel Anticoag Stat Lab 01/28/24 05:10 Received [facility] PRATEEK Profile Routine Lab 01/28/24 12:00 Ordered Oligoclonal Bands IGG, CSF Urgent Lab 01/29/24 Received PROTEIN C, ACTIVITY Stat Lab 01/28/24 05:10 Received PROTEIN S, ACTIVITY Stat Lab 01/28/24 05:10 Received PROTHROMBIN GENE [PROTHROMBIN (FACTOR II) [id number]] Stat Lab 01/28/24 05:10 Received Total Protein CSF Routine Lab 01/29/24 Received VDRL on CSF Stat Lab 01/29/24 Received CV. echo w/w bubble cont [id number] Stat Ultrasound 01/28/24 02:12 Taken Radiology Impressions Head/Neck CTA 01/28/24 00:13 IMPRESSION: No large vessel stenosis or occlusion. IMPRESSION: No stenosis or occlusion. REFERENCES: NASCET CRITERIA. The degree of stenosis in the cervical segment of the internal carotid artery is based on NASCET criteria. Normal is no stenosis. Mild is less than 50% stenosis. Moderate is 50-69% stenosis. Severe is 70% to 99% stenosis. Total occlusion is no detectable patent lumen. Venous Duplex 01/28/24 02:12 IMPRESSION: No evidence of deep vein thrombosis. Head MRI 01/28/24 09:57 IMPRESSION: 1. Small focus of abnormal T2 signal in the left periventricular white matter, suspicious for demyelinating disease, e.g. multiple sclerosis. 2. No evidence of acute infarct. Head CT 01/28/24 23:55 IMPRESSION: No hemorrhage or change from same-day MRI. Laboratory Results WBC 10.71 10^3/uL (3.29-11.43) 01/29/24 03:36 RBC 4.57 10^6/uL (3.85-5.65) 01/29/24 03:36 Hgb 10.50 g/dL (11.27-16.99) L 01/29/24 03:36 Hct 33.6 % (36-47) L 01/29/24 03:36 MCV 73.5 fl (85-98) L 01/29/24 03:36 MCH 23.0 pg (27-33) L 01/29/24 03:36 MCHC 31.3 g/dL (30-55) 01/29/24 03:36 RDW 23.1 % (12.1-15.1) H 01/29/24 03:36 Plt Count 286 10^3/cmm (157-399) 01/29/24 03:36 MPV 11.1 fL (7.4-10.4) H 01/29/24 03:36 Neut % (Auto) 90.3 % 01/29/24 03:36 Lymph % (Auto) 6.0 % 01/29/24 03:36 Rosebud % (Auto) 3.2 % 01/29/24 03:36 Eos % (Auto) 0.0 % 01/29/24 03:36 Baso % (Auto) 0.1 % 01/29/24 03:36 Neut # (Auto) 9.68 10^3/uL (1.8-7.7) H 01/29/24 03:36 Lymph # (Auto) 0.6 10^3/uL (0.8-4.8) L 01/29/24 03:36 Rosebud # (Auto) 0.3 10^3/uL (0.2-0.9) 01/29/24 03:36 Eos # (Auto) 0.0 10^3/uL (0.0-0.8) 01/29/24 03:36 Baso # (Auto) 0.0 10^3/uL (0.0-0.1) 01/29/24 03:36 Nucleated RBC % (auto) 0 % 01/29/24 03:36 Nucleated RBCs # 0.0 /100WBC 01/29/24 03:36 PT 12.60 SECONDS (12.1-14.9) 01/28/24 00:16 INR 0.92 (0.8-1.2) 01/28/24 00:16 APTT 28.3 SECONDS (23.9-36.7) 01/28/24 00:16 Fibrinogen 362 mg/dL (174-498) 01/28/24 05:10 Sodium 137 mmol/L (136-145) 01/29/24 03:36 Potassium 4.4 mmol/L (3.5-5.1) 01/29/24 03:36 Chloride 108 mmol/L (98-107) H 01/29/24 03:36 Carbon Dioxide 21 mmol/L (22-29) L 01/29/24 03:36 Anion Gap 12.4 (5-19) 01/29/24 03:36 BUN 12 mg/dL (6-20) 01/29/24 03:36 Creatinine 0.6 mg/dL (0.5-0.9) 01/29/24 03:36 GFR Calculation 115.9 mL/min (90-130) 01/29/24 03:36 Glucose 220 mg/dL (65-115) H 01/29/24 03:36 POC Glucose 118 mg/dL (70-110) H 01/28/24 00:36 Estimat Average Glucose 94 01/28/24 01:16 Hemoglobin A1c 4.9 % (4.0-6.0) 01/28/24 01:16 Calculated Osmolality 291 mOsm/kg (285-295) 01/29/24 03:36 Calcium 7.9 mg/dL (8.5-10.5) L 01/29/24 03:36 Total Bilirubin 0.2 mg/dL (0.15-1.2) 01/29/24 03:36 AST 26 U/L (0-32) 01/29/24 03:36 ALT 33 U/L (0-33) 01/29/24 03:36 Alkaline Phosphatase 63 U/L (35-105) 01/29/24 03:36 Total Protein 6.0 g/dL (6.6-8.7) L 01/29/24 03:36 Albumin 3.7 g/dL (3.5-5.2) 01/29/24 03:36 Globulin 2.3 g/dL (1.3-4.6) 01/29/24 03:36 Triglycerides 52 mg/dL (0-150) 01/28/24 01:16 Cholesterol 199 mg/dL (0-200) 01/28/24 01:16 LDL Cholesterol, Calc 118 mg/dL (50-129) 01/28/24 01:16 HDL Cholesterol 71 mg/dL (60-100) 01/28/24 01:16 LDL/HDL Ratio 1.66 RATIO (0.00-3.22) 01/28/24 01: Cholesterol/HDL Ratio 2.80 mg/dL (0.0-4.40) 01/28/24 01:16 TSH 1.54 uIU/mL (0.27-4.20) 01/28/24 01:16 Urine Color Yellow (Yellow) 01/28/24: Urine Appearance Clear (CLEAR) 01/28/24: Urine pH 6.5 (5-7) 01/28/24: Ur Specific Flynn 1.010 (1.005-1.030) 01/28/24 01: Urine Protein 1+ (Negative) H 01/28/24 01: Urine Glucose (UA) Norm (Normal) 01/28/24 01: Urine Ketones Negative (Negative) 01/28/24 01: Urine Blood Neg (Negative) 01/28/24 01: Urine Nitrate Positive (Negative) H 01/28/24: Urine Bilirubin Neg (Negative) 01/28/24: Urine Urobilinogen Neg mg/dL (Negative) 01/28/24 01:28 Ur Leukocyte Esterase Negative (Negative) 01/28/24 01:28 Urine RBC 0-4 /hpf (0-2) H 01/28/24 01:28 Urine WBC 5-10 /hpf (0-5) H 01/28/24 01:28 Ur Squamous Epith Cells 0-4 /hpf (0-5) H 01/28/24 01:28 Amorphous Sediment Trace /hpf 01/28/24 01: Urine Bacteria 2+ /hpf (NONE) H 01/28/24: Urine Mucus 1+ /hpf 01/28/24 01:28 Urine Opiates Screen Positive ng/mL (Negative) H 01/28/24: Ur Barbiturates Screen Negative ng/mL (Negative) 01/28/24 01: Ur Phencyclidine Scrn Negative ng/mL (Negative) 01/28/24 01:28 Ur Amphetamines Screen Negative ng/mL (Negative) 01/28/24 01:28 U Benzodiazepines Scrn Negative ng/mL (Negative) 01/28/24 01:28 Urine Cocaine Screen Negative ng/mL (Negative) 01/28/24 01:28 U Marijuana (THC) Screen Negative ng/mL (Negative) 01/28/24 01:28 RPR Reactive (Nonreactive) 01/28/24 13:36 Hepatitis A IgM Ab Non-reactive (Nonreactive) 01/28/24 13:36 Hep Bs Antigen Non-reactive (Nonreactive) 01/28/24 13:36 Hep Bs Antibody < 3.5 (11.5-1000) L 01/28/24 13:36 Hep B Core Total Ab Non-reactive (Nonreactive) 01/28/24 13:36 Hepatitis C Antibody Non-reactive (Nonreactive) 01/28/24 13:36 HIV 1&2 Ab & HIV 1 Ag Non-reactive (Non-Reactiv) 01/28/24 13:36 HIV 1&2 Antibody Non-reactive (Non-Reactiv) 01/28/24 13:36 Vitals Last Vital Signs Temp 98.1 F 01/28/24 20:30 Pulse 70 01/29/24 08:00 Resp 13 01/29/24 08:00 BP 101/49 01/29/24 08:00 Pulse Ox 96 01/29/24 08:00 O2 Del Method Room Air 01/29/24 08:00 Discharge Plan Discharge Patient Disposition: Home Condition: Stable Prescriptions: New aspirin 81 mg capsule 81 mg PO DAILY Qty: 30 0RF pantoprazole [Protonix] 40 mg tablet,delayed release (DR/EC) 40 mg PO QAM Qty: 30 0RF atorvastatin 10 mg tablet 10 mg PO DAILY Qty: 30 0RF levofloxacin 500 mg Tablet 500 mg PO DAILY@0600 Qty: 5 0RF Continued acetaminophen 325 mg capsule 325 mg PO Q4H PRN (Reason: fever or pain) Qty: 60 0RF ibuprofen 800 mg tablet 800 mg PO TID PRN (Reason: pain) Qty: 60 0RF methylphenidate HCl 27 mg tablet extended release 24hr 27 mg PO QAM Discharge Orders: Discharge Order (Routine); Ordered 01/29/24 Ordered By: Diego Cheung Other Ambulatory Orders: DME: [employer] (Order) Location: None Selected Ordered By: Diego Cheung DME: Wheelchair (Order) Location: None Selected Ordered By: Diego Cheung MR cervical spine wo/w [id number] (Routine) Timeframe: 1 Week Facility: [facility] - Location: Radiology [facility] Ordered By: Diego Cheung MR lumbar spine wo/w con [id number] (Routine) Timeframe: 1 Week Facility: [facility] - Location: [facility] Ordered By: Diego Cheung MR thoracic spine wo/w [id number] (Routine) Timeframe: 1 Week Facility: [facility] - Location: [facility]iology [facility] Ordered By: Diego Cheung Referrals: Marge Tinsley MD [Physician] - 6 Weeks Discharge Diet: Regular Discharge Activity: Resume usual activity and Increase activity as tolerated Patient Instructions: Opioid Safety Activity Restrictions/Additional Instructions: Continue with methylprednisone 1 g IV dose for next 3 days. Levaquin is the antibiotic which is supposed to take for next 5 days. You should have an MRI of your spine done within the next 1 to 2 weeks. Please follow-up with your primary care provider within next 1 week. Please follow-up with Dr. Tinsley from neurology within next 6 weeks. Discharge Attestations Time Spent in Discharge Care*: greater than 30 min Specific Discharge Activities: educating patient, educating and/or supporting family/caregiver, discussing with pcp/other providers, discussing with immigration case worker/social workers/dc planners, documenting/other paperwork and evaluating patient/reviewing data Quality Metrics Clinical Quality Measures [ Cerebrovascular Accident { Contraindication to Antithrombotic: None; antithrombotic prescribed; Contraindication to Anticoagulation: None; anticoagulation prescribed; Contraindication to Statin: None; Statin prescribed; Contraindication to tPA: None; TPA given; Onset of Symptoms Date: 01/27/24; Reason stroke education not provided: Stroke education provided to patient; Rehab services assessed: Activities of daily living assessment, Rehabilitation assessment, Physical therapy, Occupational therapy, Speech therapy, Stroke rehabilitation, Other;}] Coding Level of Care Code Acute Code for Chg Fwd Diagnoses tPA adm status 24 hr [employer] Z92.82 Demyelinating changes in brain G37.9 Monofocal clinically isolated syndrome G35
--- NOTE | 2024-01-29 13:38 | PC.NURSE ---
[facility] treatment [facility] in charge of all out patient infusions has been contacted. Director,Juliana Steinberg has been emailed patient OV number and info by community associate here in ICU. Chandni griffiths is in charge of scheduling. For follow up infusions of 1,000mg solu-medrol in sodium chloride 0.9% 250ml to infuse over one hour, Per Dr. Tinsley.
[2024-01-29] MEDS: nystatin 100,000 unit/mL UDC 5 mL 100000 UNIT PO (13:56)
[2024-01-29 14:08] LABS: Cyto Order Verification No Order
[2024-01-29 14:13] LABS: CSF Mononuclear # 0.001 10^3/uL (50-90); Mononuclear WBC CSF % 100 % (50-90); Polynuclear WBC CSF % 0 % (0-10); Red Blood Cell CSF 0 10^3/uL (0-0); White Blood Cell CSF 1 /uL (0-5)
[2024-01-29 14:20] LABS: Appearance CSF CLEAR (CLEAR); Color CSF COLORLESS (COLORLESS); Pathology Referral Yes
[2024-01-29 14:45] LABS: Glucose CSF 105 mg/dL (40-70); Total Protein CSF 16 mg/dL (15-45)
--- NOTE | 2024-01-29 15:11 | PC.NURSE ---
Extensive education provided to patient and her mother at bedside. BI AC IV removed intact with no complications. Patient instructed to call Dr. Oconnell office for follow up appointment. Patient instructed to anticipate call for scheduling steroid infusion 01-30-[address] Tinsley, and if not called by noon to call provided number for scheduling infusion. New medications reviewed, sent to [facility] pharmacy, Continued medications reviewed. Fall risk reviewed. After care spinal tap and S/S of complications reviewed. All written medication reviewed by page with patient. Patient and her mother at bedside had no questions. At 1506 patient brought by provided wheelchair to personal vehicle with family assistance to enter vehicle as it was a large truck. Wheelchair loaded into back of truck by family. All belongings with patient including phone and jewelry.
--- NOTE | 2024-01-30 09:21 | PC.SOCIAL ---
Outpt IV Steroid Pt was discharged home yesterday. Dr Cheung ordered for pt to come back in for IV Methylprednisolone 1G daily for 3 more days starting today, 01/29 & ending on 01/31. Cm faxed order, notes, & facesheet to Outpt [facility] Infusions. Called & notified Chandni ([id number]). She said she will work on it & will follow up with pt. No other needs voiced for CM.
--- NOTE | 2024-01-30 11:34 | PC.SOCIAL ---
Unable to get ahold of pt. Chandni from inf[facility] messaged & said she has not been able to get ahold of pt. Instructional Coordinator tried calling pt, had to leave a message on pt?s voicemail. Tried calling her life partner Jorge & pt?s mother Shawna. None of them answered. CM messaged Chandni with [facility] of this.
[2024-01-31 14:30] LABS: Anti-Double Strand DNA AB <1 IU/mL; Jo-1 Antibody <1.0 NEG AI (<1.0 NEG); SS-B/LA IGG <1.0 NEG AI (<1.0 NEG); Scleroderma Ab(Scl-70) Ab <1.0 NEG AI (<1.0 NEG); Ss-A/Ro Igg <1.0 NEG AI (<1.0 NEG)
[2024-02-02 13:19] LABS: Beta 2 Glycoprotein IGA <2.0 U/mL; Beta 2 Glycoprotein IGG <2.0 U/mL; Beta 2 Glycoprotein IGM 4.5 U/mL; CARDIOLIPIN AB (IGA) <2.0 APL-U/mL; CARDIOLIPIN AB (IGG) <2.0 GPL-U/mL; CARDIOLIPIN AB (IGM) 4.3 MPL-U/mL
[2024-02-02 22:59] LABS: VDRL on CSF NON-REACTIVE
[2024-02-03 00:30] LABS: Antithrombin III Activity 126 % normal (80-135)
[2024-02-03 13:54] LABS: Lupus Hexagonal Phas Confirm Negative (Negative); PTT-LA-Screen 45 sec (<=40)
[2024-02-03 22:45] LABS: PROTEIN C, ACTIVITY 58 % normal (70-180)
[2024-02-06 15:00] LABS: Factor 5 Leiden Mutation NEGATIVE
[2024-02-08 12:05] LABS: IgG Index , CSF 0.59 (<0.70); Immunoglobulin G 955 mg/dL (600-1640); Synthesis Rate IgG, CSF -2.7 mg/24 h (-9.9 TO +3.3)
[2024-02-09 09:28] LABS: Phosphatidylserine IgG <9
[2024-02-09 09:34] LABS: Phosphatidylserine IgM 15
[2024-02-10 00:18] LABS: Oligoclonal Bands IGG, CSF ABSENT (ABSENT)
[2024-02-13 14:49] LABS: PROTHROMBIN (FACTOR II) 20210G NEGATIVE
== END 2024-01-29 15:26 | disposition home or self-care (01) | DRG 59 ==
LOC: ER 01:02 → ICU 02:00
PROVIDERS: Specialist; Admitting Provider Family Medicine; Emergency Provider Emergency Medicine; Visit Provider Student in an Organized Health Care Education/Training Program
DX: G37.9 Demyelinating disease of central nervous system, unspecified (principal); N39.0 Urinary tract infection, site not specified; G35 Multiple sclerosis; H53.2 Diplopia; F45.8 Other somatoform disorders; I10 Essential (primary) hypertension; F17.210 Nicotine dependence, cigarettes, uncomplicated; R47.1 Dysarthria and anarthria; G81.91 Hemiplegia, unspecified affecting right dominant side; R29.810 Facial weakness; R29.707 NIHSS score 7
CPT/HCPCS: 36415; 36416; 70450; 70496; 70498; 70553; 80053; 80061; 80306; 80503; 81001; 81241; 82040; 82042; 82784; 82945; 82962; 83036; 83516; 83916; 84157; 84443; 85025; 85210; 85300; 85303; 85306; 85384; 85610; 85613; 85730; 86146; 86147; 86225; 86235; 86592; 86705; 86706; 86709; 86803; 87070; 87075; 87077; 87086; 87186; 87205; 87340; 87806; 89050; 92610; 93005; 93970; 94664; 96374; 96375; 96376; 97110; 97116; 97163; 97166; 97535; 99285; C8929; C9113; J2270; J2765; J2919; J3101; J7030; J7050; Q9967

== ENCOUNTER 2024-02-02 14:00 | Oncology outpatient (recurring) (ONCR) | payer OTHER, SELFPAY ==
[2024-01-30] MEDS: methylPREDNISolone sod succ 1,000 MG in sodium chloride 0.9% 250 ML 258 MG IV (13:51)
[2024-01-30 14:13] VITALS: BP 120/80; PULSE 62; RESP 16; TEMP 36.2; O2SAT 99
[2024-01-30 14:49] VITALS: BP 138/91; PULSE 68; RESP 18; TEMP 36.6; O2SAT 99
[2024-01-31 12:51] VITALS: BP 112/73; PULSE 83; RESP 18; TEMP 36.9; O2SAT 97
[2024-01-31] MEDS: methylPREDNISolone sod succ 1,000 MG in sodium chloride 0.9% 250 ML 258 MG IV (13:16)
[2024-01-31 14:35] VITALS: BP 123/77; PULSE 83; RESP 16; TEMP 36.9; O2SAT 99
[2024-02-01 15:03] VITALS: BP 122/75; PULSE 68; RESP 16; TEMP 36.6; O2SAT 100
[2024-02-01] MEDS: methylPREDNISolone sod succ 1,000 MG in sodium chloride 0.9% 250 ML 258 MG IV (15:31)
[2024-02-01 16:38] VITALS: BP 118/74; PULSE 71; RESP 16; TEMP 36.6; O2SAT 99
== END 2024-02-10 23:59 | disposition home or self-care (01) ==
PROVIDERS: Visit Provider Student in an Organized Health Care Education/Training Program
DX: Z53.9 Procedure and treatment not carried out, unspecified reason (principal)
CPT/HCPCS: 96365; J2919; J7050

== ENCOUNTER → 2024-02-08 11:45 | Outpatient (BNVA) | payer OTHER, SELFPAY | PROVIDERS: Visit Provider Specialist | DX: N30.90 Cystitis, unspecified without hematuria (principal); G37.9 Demyelinating disease of central nervous system, unspecified; G35 Multiple sclerosis; G24.9 Dystonia, unspecified; Z87.440 Personal history of urinary (tract) infections | CPT/HCPCS: 81003; 99204; 99205 ==

== ENCOUNTER 2024-03-06 10:17 | Outpatient (CLI) | payer OTHER, SELFPAY ==
--- NOTE | 2024-03-06 10:26 | MR_ITS ---
WS: [id number] MR CERVICAL SPINE WO/W COMPARISON: None. HISTORY: DEMYELINATING DZ OF CENTRAL NERVOUS SYSTEM/?MULTIPLE SCLEROS TECHNIQUE: Sagittal T1, T2 and T2 inversion recovery; axial T2, T2 gradient and fiesta. Post gadolini um imaging with fat saturation technique. FINDINGS:Straightening of the normal cervical lordosis. No high grade central canal narrowing. Some images are degraded by patient motion. No visualized demyelinating lesions in the cervical cord. No abnormal gadolinium enhancement to indicate active disease. C2-3: Spinal canal and foramen are patent. C3-4: Spinal canal and foramen are patent. C4-5: Minimal disc bulging. Mild facet arthropathy. Mild LEFT foraminal narrowing. Spinal canal is pa tent. C5-6: Mild disc bulging with endplate ridging. Mild facet arthropathy. Spinal canal and foramen are p atent. C6-7: Minimal disc bulging. Spinal canal and foramen are patent. C7-T1: Spinal canal and foramen are patent. MR/MR cervical spine wo/w [id number] IMPRESSION: 1. Straightening of the normal cervical lordosis. No significant central daniel l narrowing. 2. No visualized demyelinating lesions in the cervical cord. No enhancing lesi ons to indicate active disease. 3. No significant cord atrophy. 4. Mild LEFT bony foraminal narrowing C4-5
--- NOTE | 2024-03-06 10:26 | MR_ITS ---
WS: [id number] MRI LUMBAR SPINE WITH CONTRAST TECHNIQUE: Sagittal T1, T2 and STIR imaging. Axial T1 and T2 imaging. Post gadolinium imaging was obt ained. CLINICAL INFORMATION: DEMYELINATING DZ OF CENTRAL NERVOUS SYSTEM/?MS COMPARISON: None. FINDINGS: Mild lumbar curve. No acute compression. Mild disc bulging worse at L5-S1 with small annular tear. L1-L2: Normal. L2-L3: Normal. L3-L4: Mild facet arthropathy. Spinal canal and foramen are patent. L4-L5: Mild facet arthropathy. Spinal canal and foramen are patent. L5-S1: Mild annular bulge with a small annular tear. Slight effacement of the ventral thecal sac. Spi nal canal and foramen are patent. Mild facet arthropathy. Visualized pelvic bony structures: Normal. Paravertebral soft tissues: Normal. MR/MR lumbar spine wo/w con [id number] IMPRESSION: 1. Mild lumbar curve. No acute compression. No high-grade central canal stenos is. 2. No abnormal gadolinium enhancement. 3. Mild facet arthropathy L3-L5. 4. Mild disc bulge L5-S1 with a small annular tear and slight effacement of th e ventral thecal sac. Slight encroachment on the LEFT S1 nerve root. 5. No other acute findings.
[2024-03-06] MEDS: gadobenate dimeglumine 20 mL vial IV (11:19)
== END 2024-03-06 10:18 | disposition home or self-care (01) ==
LOC: RAD 10:18
PROVIDERS: Visit Provider Specialist
DX: G37.9 Demyelinating disease of central nervous system, unspecified (principal)
CPT/HCPCS: 72156; 72158; A9577

== ENCOUNTER → 2024-12-05 16:08 | Outpatient (BNVA) | payer OTHER, SELFPAY | PROVIDERS: Visit Provider Nurse Practitioner Women's Health | DX: Z00.00 Encounter for general adult medical examination without abnormal findings (principal) | CPT/HCPCS: 80053; 82306; 83036; 84443; 85025; 86592; 86803; 87340 ==

== ENCOUNTER → 2025-06-17 11:46 | Outpatient (BNVA) | payer OTHER, SELFPAY | PROVIDERS: Visit Provider Nurse Practitioner Women's Health | DX: Z01.419 Encounter for gynecological examination (general) (routine) without abnormal findings (principal); Z11.3 Encounter for screening for infections with a predominantly sexual mode of transmission | CPT/HCPCS: 86592; 86705; 86706; 86709; 86803; 87340; 87806 ==